=== PATIENT | female | born 1960 | race Caucasian/White ===

== ENCOUNTER → 2016-07-30 | Outpatient (CLI) | payer OTHER | LOC: FIMAGING 17:44 | PROVIDERS: ATTEND Neurological Surgery | DX: M54.6 Pain in thoracic spine (principal); M54.5 Low back pain; Z98.1 Arthrodesis status; T84.498A Other mechanical complication of other internal orthopedic devices, implants and grafts, initial encounter; M51.34 Other intervertebral disc degeneration, thoracic region ==

== ENCOUNTER → 2016-08-13 | Outpatient (CLI) | payer OTHER | LOC: FIMAGING 15:28 | PROVIDERS: ATTEND Neurological Surgery | DX: M47.22 Other spondylosis with radiculopathy, cervical region (principal); Z98.1 Arthrodesis status ==

== ENCOUNTER → 2016-08-30 | Outpatient (CLI) | payer OTHER | LOC: FIMAGING 12:13 | PROVIDERS: ATTEND Neurological Surgery | DX: M54.12 Radiculopathy, cervical region (principal); Z98.1 Arthrodesis status ==

== ENCOUNTER → 2016-09-08 | Outpatient (CLI) | payer OTHER | LOC: CIMAGING 09:21 | PROVIDERS: ATTEND Neurological Surgery | DX: M48.04 Spinal stenosis, thoracic region (principal); M51.34 Other intervertebral disc degeneration, thoracic region; M25.78 Osteophyte, vertebrae; Z98.1 Arthrodesis status | CPT/HCPCS: 72131-PO ==

== ENCOUNTER → 2016-10-15 | Outpatient (CLI) | payer OTHER | LOC: BHCLAF 13:30 | PROVIDERS: ATTEND Internal Medicine Cardiovascular Disease | DX: Z01.818 Encounter for other preprocedural examination (principal); I38 Endocarditis, valve unspecified | CPT/HCPCS: 93005-PO ==

== ENCOUNTER 2016-10-29 11:22 | Inpatient (IN) | payer OTHER ==
--- NOTE | 2016-10-29 07:32 | PDHPUP ---
History & Physical Update H&P update statement: This history and physical update is based on an assessment of the patient which was completed after admission or registration (within 24 hours), but prior to the surgery/procedure. H&P update: H&P reviewed & patient examined, no change in patient's condition since H&P completed
[~2016-10-29 11:22] MED LIST: AVITENE POWDER 1 GM JAR TP ONE; BACITRACIN 50,000 UNITS/10 ML SYR IRR ONE; BUPIVACAINE/EPI 0.25% 30 ML SDV ONE; CHLORHEXIDINE GLUC HIBICLENS 118 ML BTL TP ONE; THROMBIN (BOVINE) 5,000 UNIT VIAL TP ONE; VANCOMYCIN 1 GM VIAL ONE; ceFAZolin 2 GM/DEXTROSE 100 ML IV ONE
[2016-10-29] MEDS ORDERED: LIDOCAINE 1% 2 ML INJ ID PRN (11:57)
[2016-10-29] MEDS ORDERED: LR 1,000 ML IV ONE (11:57)
[2016-10-29] MEDS ORDERED: ceFAZolin 2 GM/DEXTROSE 100 ML IV ONE (12:00)
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
[2016-10-29] MEDS ORDERED: CYCLOBENZAPRINE 10 MG TAB PO PRN (12:37)
[2016-10-29] MEDS ORDERED: DIAZEPAM 10 MG TAB PO PRN (12:37)
[2016-10-29] MEDS ORDERED: NALOXONE HCL 0.4 MG/ML INJ IVP PRN ×2 (12:40→19:11)
[2016-10-29] MEDS ORDERED: NS 500 ML IV PRN (12:40)
[2016-10-29] MEDS ORDERED: BISACODYL 10 MG SUPP PR PRN (12:40)
[2016-10-29] MEDS ORDERED: oxyCODONE IR 5 MG TAB PO PRN (12:40)
[2016-10-29] MEDS ORDERED: diphenhydrAMINE 25 MG CAP PO PRN (12:40)
[2016-10-29] MEDS ORDERED: ONDANSETRON DISINTEGRATING 4 MG TAB PO PRN (12:40)
[2016-10-29] MEDS ORDERED: ONDANSETRON 4 MG/2 ML VIAL IVP PRN (12:40)
[2016-10-29] MEDS ORDERED: MAGNESIUM HYDROXIDE 30 ML UDCUP PO PRN (12:40)
[2016-10-29] MEDS ORDERED: POLYETHYLENE GLYCOL 3350 17 GM PKT PO PRN (12:40)
[2016-10-29] MEDS ORDERED: LACTULOSE 20 GM/30 ML UDCUP PO PRN (12:40)
[2016-10-29] MEDS ORDERED: DEXMEDETOMIDINE HCL 400 MCG in NS 100 ML IV SCH (13:00)
[2016-10-29] MEDS ORDERED: PROPOFOL 200 MG/20 ML VIAL ONE ×2 (13:03→14:16)
[2016-10-29] MEDS ORDERED: MIDAZOLAM 2 MG/2 ML VIAL IVP ONE (13:06)
[2016-10-29] MEDS ORDERED: DEXMEDETOMIDINE HCL 200 MCG/2 ML VIAL IV ONE (13:08)
[2016-10-29] MEDS ORDERED: fentaNYL 100 MCG/2 ML INJ ONE ×2 (13:09)
[2016-10-29] MEDS ORDERED: MIDAZOLAM 2 MG/2 ML VIAL ONE (13:13)
[2016-10-29] MEDS ORDERED: ALBUMIN 5% 250 ML BOTTLE IV ONE (13:16)
[2016-10-29] MEDS ORDERED: PHARMACY PAIN CONSULT 1 EA MISC SCH (13:45)
[2016-10-29] MEDS ORDERED: PROPOFOL/EMULSION 500 MG/50 ML BOTTLE IV ONE (15:02)
[2016-10-29] MEDS ORDERED: HYDROmorphONE/DILAUDID 2 MG/ML INJ ONE (17:32)
[2016-10-29] MEDS ORDERED: PHENYLEPHRINE HCL 100 MCG/ML SYR ONE (17:58)
[2016-10-29] MEDS ORDERED: LIDOCAINE 2% 5 ML SDV ONE (17:58)
[2016-10-29] MEDS ORDERED: ONDANSETRON 4 MG/2 ML VIAL ONE (17:58)
[2016-10-29] MEDS ORDERED: DEXAMETHASONE 4 MG/ML VIAL ONE (17:58)
[2016-10-29] MEDS ORDERED: ROCURONIUM 50 MG/5 ML VIAL ONE (17:58)
[2016-10-29] MEDS ORDERED: epHEDrine SULFATE 10 MG/ML SYR ONE (18:23)
--- NOTE | 2016-10-29 18:27 | POSTOPPROG ---
Post Op Note Date of Operation: 10/29/16 Surgeon: Callie Carey Wire Stitcher Operator: Gerber ZIMMER Anesthesia: GET(General Endotracheal) Procedure: T8-T12 fusion with S2 tie in, T10-11 laminectomy Inf/Abcess present in the surg proc area at time of surgery?: No Depth: Deep Incisional (Fascial) EBL: 100-500 Total fluids administered: see anesthesia Complications: none Drains: Reuben Verdin Date of Surgery: 10/29/16 Post Op Day: 0 Assessment/Plan: 55 yr old with multiple medical problems, s/p T8-T12 with S2 tie in fusion and T10-11 laminectomy Plan: -Pain management, MELTER SUPERVISOR OPEN HEARTH FURNACE ordered, Precedex if needed -PT/OT -Wear brace when out of bed-Dip Painter to fit with clamshell brace -Post op xrays in am -SCOTT in place-productive -Call neurosurgery with any questions/concerns Subjective: Patient waking up in PACU Objective: PERRLA 5/5 BUE 5/5 BLE Sensation intact to light touch BLE SCOTT in place Dressing CDI Appropriate Neuro Check Frequency Ordered: Yes
[2016-10-29] MEDS: ACETAMINOPHEN 500 MG TAB PO SCH ×2 (18:51→21:59)
[2016-10-29] MEDS: HYDROmorphONE/DILAUDID 1 MG/ML SYR IVP PRN ×3 (19:10→19:30)
[2016-10-29] MEDS ORDERED: LR 500 ML IV PRN (19:11)
[2016-10-29] MEDS ORDERED: PROMETHAZINE HCL 25 MG/ML INJ IVP PRN (19:11)
[2016-10-29] MEDS ORDERED: OXYCODONE/APAP 5/325 TAB PO PRN (19:11)
[2016-10-29] MEDS ORDERED: HYDROmorphONE/DILAUDID 1 MG/ML SYR ONE (19:22)
[2016-10-29] MEDS: HYDROmorphONE/DILAUDID 6 MG/30 ML PCA IV PRN (20:22)
[2016-10-29] MEDS: NS 1,000 ML IV SCH (20:22)
[2016-10-29] MEDS: oxyCODONE IR 15 MG TAB PO PRN (20:50)
[2016-10-29] MEDS: SENNOSIDES/DOCUSATE SODIUM TAB PO SCH (20:51)
[2016-10-29] MEDS: METHOCARBAMOL 750 MG TAB PO SCH (20:51)
[2016-10-29] MEDS: FAMOTIDINE 20 MG TAB PO SCH (20:51)
[2016-10-29] MEDS: HYDROmorphONE/DILAUDID 4 MG TAB PO PRN (20:51)
[2016-10-29] MEDS: ceFAZolin 2 GM/DEXTROSE 100 ML IV SCH (21:57)
[2016-10-29] MEDS: LOPREEZA PO SCH (21:58)
[2016-10-29] MEDS: GABAPENTIN 300 MG CAP PO SCH (21:59)
[2016-10-29] MEDS: Oxymorphone Hcl [Opana Er] 40 MG PO SCH (22:05)
[2016-10-29] MEDS: metFORMIN HCL 500 MG TAB PO SCH (22:18)
[2016-10-29] MEDS: QUEtiapine FUMARATE 50 MG TAB PO SCH (22:53)
[2016-10-29] MEDS: DIAZEPAM 10 MG TAB PO SCH (22:53)
[2016-10-29] MEDS: traZODone 100 MG TAB PO SCH (22:53)
[2016-10-29] MEDS: Suvorexant [Belsomra] 10 MG PO SCH (23:34)
--- NOTE | 2016-10-29 23:57 | GCON ---
[f rep st] CONSULTATION HOSPITALIST CONSULTATION DATE OF CONSULTATION: 10/29/2016 REFERRING PHYSICIAN: Tevin Esparza MD REASON FOR CONSULTATION: Postoperative medical management. HISTORY OF PRESENT ILLNESS: This is a 55-year-old female with history of multiple back surgeries, w ho underwent a T10/11 thoracic laminectomy, T8-L2 fusion, and thoracic hardware removal at T12 and L 1, whom we were asked to consult for medical management. The patient has a history of multiple medical problems, including but not limited to, adrenal insuff iciency, anxiety, chronic pain, colitis, Marfan syndrome with mitral valve disease, narcolepsy. Postoperatively,the patient has been transferred to the intensive care unit where currently she is r esting comfortably. She tells me her pain is controlled. It is better when she lays on her left si de. She denies any chest pain or shortness of breath. She denies any fevers or chills. PAST MEDICAL HISTORY: 1. Marfan syndrome. 2. Mitral valve replacement by Dr. Carlson in 2013. 3. Microvascular colitis. 4. Adrenal insufficiency. 5. Anxiety. 6. Chronic back pain. 7. Insomnia. 8. Narcolepsy. PAST SURGICAL HISTORY: 1. Multiple back surgeries. 2. Bilateral tubal ligation. 3. Hemorrhoidectomy. 4. Left radial fracture. 5. ORIF. MEDICATIONS: Reviewed. ALLERGIES: Fentanyl, codeine, prednisone, hydrocortisone. SOCIAL HISTORY: She is a former smoker. There is no history of illicit drug use. FAMILY HISTORY: Reviewed and noncontributory. REVIEW OF SYSTEMS: Comprehensive 10-point review of systems was done and is negative, except for as mentioned in the HPI. PHYSICAL EXAMINATION: VITAL SIGNS: Blood pressure 95/55, pulse of 81, respiratory rate 12, O2 satu ration 98% on room air. Temperature afebrile. GENERAL: No acute distress. HEAD: Normocephalic, atraumatic. EYES: PERRLA. Sclerae anicteric. MOUTH: Moist mucous membranes. NECK: Supple. No lymphadenopathy. CARDIOVASCULAR: S1, S2. Systolic murmur. There is no JVD. There is no lower e xtremity edema. PULMONARY: Diminished breath sounds bilaterally. BACK: Clean dry dressing in brock ce. ABDOMEN: Soft, nontender, nondistended. No guarding or rebound tenderness. Normoactive bowel sounds. EXTREMITIES: No clubbing or cyanosis. NEURO: Cranial nerves 2-12 grossly intact. She m oves her lower extremities with no focal deficits. SKIN: Clear. No rashes. DIAGNOSTICS: Laboratory studies from 10/16/2016. WBC is 9.5, hemoglobin 13.1, hematocrit 40.2, brock telets 301. Sodium 139, potassium 4.4, chloride 99, BUN 8, creatinine 0.7, glucose 97. Glucose sin ce her surgery has ranged from 84-206. ASSESSMENT AND PLAN: This is a 55-year-old female with history of multiple medical problems, who un derwent a T10/11 thoracic laminectomy, T8/T12 thoracic posterior fusion, and thoracic hardware remov al today by Dr. Nelson Esparza, who I have been asked to see for medical management. 1. History of Marfan syndrome with valvular heart disease: Plan: Currently, the patient appears t o be oxygenating well without signs of acute heart failure. She will be closely monitored while her e in the hospital. 2. Reported history of adrenal insufficiency: The patient is mildly hypotensive at this time but a ppears to be asymptomatic. Will continue to monitor her blood pressure, as well as order electrolyt es in the morning in view of stress-dose steroids as indicated. To note, it does appear that she platt s allergies to prednisone and hydrocortisone listed. 3. History of microvascular colitis: Plan: Will continue to monitor. Thank you for allowing me to participate in the care of the patient. The hospitalist service will c reg to follow along with you. /[id number]/MODL
[2016-10-30 02:17] LABS: % IMMATURE GRANULYOCYTES 0.5 % (0.0-1.1); ABSOLUTE IMMATURE GRANULOCYTES 0.04 10^3/uL (0.00-0.10); ADD DIFF? NO; ADD MORPH? NO; ADD SCAN? NO; ATYPICAL LYMPHOCYTE FLAG 0 (0-99); FRAGMENT RBC FLAG 0 (0-99); HEMATOCRIT 23.1 % (38.0-47.0); HEMOGLOBIN 7.7 g/dL (12.6-16.3); LEFT SHIFT FLG 0 (0-99); LIPEMIA HEMOLYSIS FLAG 80 (0-99); MEAN CELL HEMOGLOBIN 28.5 pg (27.9-34.1); MEAN CELL HEMOGLOBIN CONCENTR. 33.3 g/dL (32.4-36.7); MEAN CELL VOLUME 85.6 fL (81.5-99.8); MEAN PLATELET VOLUME 8.8 fL (8.7-11.7); PLATELET CLUMPS FLAG 0 (0-99); PLATELET COUNT 161 10^3/uL (150-400); RED CELL DISTRIBUTION WIDTH 13.5 % (11.5-15.2)
[2016-10-30 02:32] LABS: ANION GAP 4 mEq/L (8-16); CALCIUM 7.4 mg/dL (8.5-10.4); CARBON DIOXIDE 24 mEq/l (22-31); CHLORIDE 102 mEq/L (97-110); CREATININE 0.6 mg/dL (0.6-1.0); GLOMERULAR FILTRATION RATE > 60; GLUCOSE 104 mg/dL (70-100); POTASSIUM 4.1 mEq/L (3.5-5.2); SODIUM 130 mEq/L (134-144)
--- NOTE | 2016-10-30 03:48 | GOP ---
[f rep st] OPERATIVE REPORT DATE OF OPERATION: 10/29/2016 SURGEON: Tevin Esparza MD ASSIGNMENT MANAGER: Gerber Madison PA-C. PREOPERATIVE DIAGNOSIS: Prior T12-S1 fusion with known fractured S1 screws although she, by CT crit eria, has solid bony union from T12 to S1. She developed, adjacent segment disease, thoracic spine, severe thoracic degenerative disk disease. Thoracic spinal stenosis. Thoracic back pain. POSTOPERATIVE DIAGNOSIS: Prior T12-S1 fusion with known fractured S1 screws although she, by CT cri teria, has solid bony union from T12 to S1. She developed, adjacent segment disease, thoracic spine , severe thoracic degenerative disk disease. Thoracic spinal stenosis. Thoracic back pain. PROCEDURE PERFORMED: Removal of posterior segmental hardware at T12-L1 with removal of connectors a t L3, posterior segmental instrumentation T8-T9, T10-T11, T12-L1 ([id number], posterior-lateral arthrodes is T8-9, 9-10, 10-11, T12-L1, L1-L2), spinal stereotactic, thoracic laminectomy without facetectomy T10-11. Same incision bone graft harvest. FINDINGS: ESTIMATED BLOOD LOSS: 500 cc. INDICATIONS: The patient is a 55-year-old with Marfan's syndrome, has a history of multilevel anter ior and posterior cervical ACDF as well as a long history of problems in her lower back. She, in fa ct, had a history of pseudoarthrosis requiring revision surgery from a prior surgery that she had platt d done before coming to us, but she had gone on to progress to a solid bony union with her subsequen t surgeries and clinically she did well. She presented to us several months ago with increasing tho racic back pain radiating into the in-line across the top of her construct. She did have numerous a ches and pains throughout various parts of her body but her greatest pain was just above her lumbosa cral fusion and imaging demonstrates severe adjacent segment of breakdown with facet arthropathy, sp inal stenosis and degenerative disk disease, and mild kyphosis above her prior effusion. We tried t o manage this conservatively. It is our hope that she could avoid surgery but she just had incapaci tating pain. The distribution of her pain was consistent with MR imaging and the degenerative thomas es on her MR and for these reasons surgery was offered to the patient we explained to her the nature of the surgery including the nature extending the fusion into the thoracic spine as well as the lik elihood that she would breakdown above our construct at T7-8 and almost certainly, given the constru ct, over time would grow and the in fact grow to join the cervical construct that she had as well. She understood this and she was very unhappy with her quality of life and was anxious to proceed wit h surgery. She saw no other path forward despite our warnings about the implications of the surgery , risk of screw and hardware failure, malposition, malfunction, nerve injury, spinal fluid leak, con tinued symptoms, Pseudarthrosis and further adjacent segment disease, as well as a slight risk of sp inal cord injury was discussed. She accepted these risks and she wanted to proceed. DESCRIPTION OF PROCEDURE: The patient was taken to the operating room, placed in the supine positio n. General anesthesia was begun. An arterial line was placed. She was carefully put on the Jackso n table. Care was taken to pad all points of contact. Her back was sterilely prepped and draped in the usual fashion. The O-arm was introduced sterilely in the field. A localizing x-ray was taken. We planned an incision from about the spinous process of T7 down to the spinous process of L3. We used the plasma blade for our dissection and performed a subperiosteal dissection down the inferior lamina of T7, the lamina of T8, T9, T10, T11, T12, L1, L2 and L3 was exposed. The prior surgical s ite was exposed. The prior hardware at T12-L1 was exposed. We began by removing the cap screws and the rods associated with that hardware. We then removed both of the 4.75 mm pedicle screws at T12 and then both of them at L1. We marked their size. They were not loose. We then removed all the s oft tissue underneath the screws. We removed the rods from the connectors down at L3. These connec tors were in good mechanical shape then we elected to leave the connectors themselves in place. We then performed an O-arm spin, and using frameless stealth stereotaxis, we placed pedicle screws bila terally at L1 and T12, T11, T10, T9 and T8. The pedicles at the lower thoracic areas T9, 10 11 and 12 were all reasonable. The T8 pedicles were solid cortical bone and measured about 4.5 mm across. We hand drilled with the match stick drill bit through the T8 pedicle on the left. We were happy w ith this. On the right-hand side we also hand drilled to the right T8 pedicle. It was slightly mor e narrow than the pedicle on the left. I was not extremely happy with this trajectory and we did no t actually put a screw on the right at T8. We performed an O-arm spin with a radiopaque marker in i t and all the screws were in acceptable position except the radiopaque marker on the right at T8 was slightly medial. I did not want to put a stitchdown toe former that trajectory, would breach the medial pedic le border. We then elected for an in-out-in approach with that screw and began our navy fighter pilot hole sligh tly lateral to the pedicle, went into the transverse process and then crossed just lateral to the pe dicle in the costovertebral region and then reentered the vertebral body and we placed a screw in th is trajectory. This screw head was now located somewhat laterally and because of this, we elected t o remove the T9 and T10 screws on the right-hand side slightly more lateral with a similar approach and these were both removed. An O-arm spin was made and all the hardware was in excellent position. Motor evoked potential was done and it was stable and there was no difficulty. The SSEPs were als o stable. We decorticated the transverse processes in the facet joints bilaterally prior to placeme nt of the rods to create arthrodesis. We chose a 5.5 mm titanium alber and shaped it to fit into the tulips. We placed in the connector on each side and then subsequently placed cap screws down over t he tulips. We distracted slightly at each of the thoracic levels by just a few mm to indirectly ope n the neural foramen on each side. We then harvested the T10 and T11, T12 and L1 spinous processes for autologous grafting purposes. We fully decorticated all the remaining bone. We then drilled an d harvested the T10 lamina. We then opened the ligamentum flavum and using Kerrison punches we deco mpressed the thecal sac and a nice decompression was performed at T10-11. There were bilateral hype rtrophic facets and we did perform a minimal facetectomy to decompress the lateral recesses of the s joaquin canal and neural foramen. We did not perform formal bilateral foraminotomies. We ensured zoya t all the tulips and cap screws were torqued to company specification, placed bony autograft and BMP posterolaterally bilaterally from T8 all the way down onto L2. We then placed a subfascial drain a nd then closed the incision in multiple layers using Vicryl sutures. This concluded the procedure. SECONDARY ASSIGNMENT MANAGER: Callie Carey NP COMPLICATIONS: None. INSTRUMENTATION REMOVED: Medtronic Solara 4.75 mm system at T12-L1. INSTRUMENTATION IMPLANTED: Medtronic Solara 5.5 mm system with titanium rods. We used 2.0 mg of melissa ne morphogenic protein. No bony allograft was used. The patient's own bone autograft harvested at the same site. /[id number]/MODL
[2016-10-30] MEDS: ACETAMINOPHEN 500 MG TAB PO SCH ×4 (05:23→23:02)
[2016-10-30] MEDS: ceFAZolin 2 GM/DEXTROSE 100 ML IV SCH (05:23)
[2016-10-30] MEDS: BUDESONIDE 3 MG EC CAP PO SCH (07:55)
[2016-10-30] MEDS: METHOCARBAMOL 750 MG TAB PO SCH ×2 (07:56→17:48)
[2016-10-30] MEDS: metFORMIN HCL 500 MG TAB PO SCH ×3 (07:56→17:48)
[2016-10-30] MEDS: LEVOTHYROXINE 88 MCG TAB PO SCH (07:56)
[2016-10-30] MEDS: FAMOTIDINE 20 MG TAB PO SCH ×2 (07:57→20:58)
[2016-10-30] MEDS: SENNOSIDES/DOCUSATE SODIUM TAB PO SCH ×3 (07:57→23:03)
--- NOTE | 2016-10-30 08:03 | NEUSURGPN ---
Date of Surgery: 10/29/16 Post Op Day: 1 Assessment/Plan: Assessment: 55 yr old with multiple medical problems, s/p T8-T12 with S2 tie in fusion and T10-11 laminectomy POD #1 Plan: -pt with expected lower back/T spine pain -CDI -PT/OT pending -pt to measured for brace today -dixon in until more mobile and when brace arrives -Pt required unit of blood-repeat labs pending this am -Pain management, SURGICAL FIRST ASSISTANT ordered, Precedex if needed-still working on resolution of this samir -Wear brace when out of bed-Retail Clerk to fit with clamshell brace -no bending or twisting -IM on board for comanagement-appreciate input -Post op xrays once brace arrives -SCOTT in [id number] in place until tomorrow -Call neurosurgery with any questions/concerns -pt seen by Dr Esparza as well Subjective: Awake and alert, NAD. Eating/drinking. No f/c/n/v/d. No platt/neck/chest/abd or gu complaints Objective: Awake and alert, PERRLA 5/5 BUE 5/5 BLE Sensation intact to light touch BLE SCOTT in place Dressing CDI Neuro Check Frequency: per routine Urinary Catheter in Place: Yes Urinary Catheter Indication: Surgical Requirement (not mobile) Catheter Insertion Date: 10/29/16 - Physician Discussed Patient with : Isaias Patient Seen by : Isaias Neurosurgery Physical Exam - Vitals, I&O, Labs I and O 10/29/16 10/30/16 10/31/16 05:59 05:59 05:59 Intake Total 3797.8 Output Total 1225 Balance 2572.8 Weight 61.689 kg Intake: Oral (ml) 1500 IV Intake (ml) 1100 IV Infused (ml) 747.8 HYDROmorphone HCL See 2.8 Protocol IV PRN PRN Rx#: [id number] Ns 1,000 ml @ 75 mls/hr 745 IV CONT TU Rx#: [id number] Packed Red Blood Cells ( 450 ml) Output: Urine (ml) 925 Catheter 925 SCOTT Drain Output (ml) 300 #1 Left Back Reuben 300 Verdin Vital Signs Temp Pulse Resp BP Pulse Ox 36.5 C 68 10 L 98/63 L 100 10/30/16 04:00 10/30/16 06:00 10/30/16 06:00 10/30/16 06:00 10/30/16 06:00 Laboratory Results 10/30/16 02:00 10/30/16 02:00 ICD10 Worksheet Patient Problems: Problems Problem Status Onset H/O spinal fusion Acute Lumbago Acute Lumbar stenosis Acute Mitral valve regurgitation Acute
[2016-10-30] MEDS: Oxymorphone Hcl [Opana Er] 40 MG PO SCH ×2 (08:04→17:48)
[2016-10-30 09:03] LABS: HEMATOCRIT 25.6 % (38.0-47.0); HEMOGLOBIN 8.7 g/dL (12.6-16.3); MEAN CELL HEMOGLOBIN 29.3 pg (27.9-34.1); MEAN CELL VOLUME 86.2 fL (81.5-99.8); RED BLOOD CELL COUNT 2.97 10^6/uL (4.18-5.33); RED CELL DISTRIBUTION WIDTH 13.8 % (11.5-15.2)
[2016-10-30 09:34] LABS: ALANINE AMINOTRANSFERASE 19 IU/L (9-52); ALBUMIN 2.3 g/dL (3.5-5.0); ALKALINE PHOSPHATASE 32 IU/L (38-126); ANION GAP 7 mEq/L (8-16); ASPARTATE AMINOTRANSFERASE 20 IU/L (14-46); BILIRUBIN,TOTAL 0.7 mg/dL (0.1-1.4); CALCIUM 7.2 mg/dL (8.5-10.4); CARBON DIOXIDE 21 mEq/l (22-31); CHLORIDE 97 mEq/L (97-110); CREATININE 0.6 mg/dL (0.6-1.0); GLOMERULAR FILTRATION RATE > 60; GLUCOSE 79 mg/dL (70-100); SODIUM 125 mEq/L (134-144); TOTAL PROTEIN 4.2 g/dL (6.3-8.2)
--- NOTE | 2016-10-30 13:12 | HOSPPROG ---
Hospitalist Progress Note Assessment/Plan: DIAGNOSES: -status post spine surgery with bone grafting and removal of hardware -pain management in patient with longstanding chronic pain syndrome -brief hypotension today responded to some saline -hyponatremia, multifactorial but mainly large part be due to significant IV and oral fluid intake; I do not think this is adrenal insufficient state but will watch carefully how she responds -history microscopic colitis on chronic low-dose budesonide; some history of adrenal insufficiency problems related to this but has never had adrenal insufficiency issues and postop settings; her current home dose of steroids could 9 mg of budesonide 0 care for last -Marfan syndrome; mitral valve replacement history reviewed in detail with Dr Thornton seen on multidisc rounds PLANS: -oral fluid restriction and follow Na closely -if further problems with Na and BP may need to consdier hypertonic saline or more steroid but would hope to avoid steroid due to her bone graft -continue current steroid -continue current pain meds, may need increase if pain gets any worse SUBJECTIVE: Quite a bit of pain but otherwise feels well No nausea or vomiting; is eating, no shortness of breath or chest pain OBJECTIVE Vitals reviewed: Some mildly low blood pressures but otherwise normal without fever Outfitter Cabin, my review: Sinus rhythm Exam: alert oriented reasonably relaxed skin warm dry color ok resps not labored lungs clear BSs heart regular abd soft nondistended nontender, bowel sounds present limbs warm, no edema iv site ok Objective: Vital Signs Temp Pulse Resp BP Pulse Ox 36.8 C 80 19 94/64 L 100 10/30/16 08:00 10/30/16 10:00 10/30/16 10:00 10/30/16 10:00 10/30/16 10:00 Laboratory Results 10/30/16 08:50 10/30/16 08:50 10/29/16 10/30/16 10/31/16 06:59 06:59 06:59 Intake Total 3797.8 Output Total 1225 200 Balance 2572.8 -200 - Time Spent With Patient Time Spent with Patient: greater than 35 minutes Time Spent with Patient: Greater than 35 minutes spent on this patients care, greater than 50% of time spent counseling, educating, and coordinating care regarding the above mentioned plan. ICD10 Worksheet Patient Problems: Problems Problem Status Onset H/O spinal fusion Acute Lumbago Acute Lumbar stenosis Acute Mitral valve regurgitation Acute
[2016-10-30] MEDS: HYDROmorphONE/DILAUDID 6 MG/30 ML PCA IV PRN (14:17)
--- NOTE | 2016-10-30 14:26 | PDINTPN ---
Senior Financial Progress Note Assessment/Plan: Assessment: Hypoglycemia: Due to accidental Levemir overdose. Now BSs improved off dextrose and taking PO only. Plan: Decrease frequency of BS checks. Restart insulin and probably can discharge home. 10/30/16 14:23 Subjective: Feels better, eating well, no N/V, confusion. Objective: Vital Signs Temp Pulse Resp BP Pulse Ox 36.8 C 80 19 94/64 L 100 10/30/16 08:00 10/30/16 10:00 10/30/16 10:00 10/30/16 10:00 10/30/16 10:00 Laboratory Results 10/30/16 08:50 10/30/16 08:50 10/29/16 10/30/16 10/31/16 05:59 05:59 05:59 Intake Total 3797.8 Output Total 1225 200 Balance 2572.8 -200 Physical Exam - Physical Exam General Appearance: alert, no apparent distress EENT: normal ENT inspection Neck: normal inspection Respiratory: lungs clear, normal breath sounds Cardiac/Chest: regular rate, rhythm, No edema Abdomen: normal bowel sounds, non-tender, soft Skin: normal color, warm/dry Extremities: normal inspection Neuro/Psych: no motor/sensory deficits, alert, normal mood/affect ICD10 Worksheet Patient Problems: Problems Problem Status Onset H/O spinal fusion Acute Lumbago Acute Lumbar stenosis Acute Mitral valve regurgitation Acute
[2016-10-30] MEDS: LOPREEZA PO SCH (17:48)
[2016-10-30] MEDS: oxyCODONE IR 15 MG TAB PO PRN (19:07)
[2016-10-30] MEDS: HYDROmorphONE/DILAUDID 4 MG TAB PO PRN (19:08)
[2016-10-30] MEDS: GABAPENTIN 300 MG CAP PO SCH (20:58)
[2016-10-30] MEDS: traZODone 100 MG TAB PO SCH (22:54)
[2016-10-30] MEDS: DIAZEPAM 10 MG TAB PO SCH (22:54)
[2016-10-30] MEDS: QUEtiapine FUMARATE 50 MG TAB PO SCH (22:54)
[2016-10-30] MEDS: Suvorexant [Belsomra] 10 MG PO SCH (23:04)
[2016-10-31] MEDS: ACETAMINOPHEN 500 MG TAB PO SCH ×3 (06:44→20:52)
[2016-10-31] MEDS: METHOCARBAMOL 750 MG TAB PO SCH ×2 (08:10→17:13)
[2016-10-31] MEDS: metFORMIN HCL 500 MG TAB PO SCH ×2 (08:10→17:13)
[2016-10-31] MEDS: BUDESONIDE 3 MG EC CAP PO SCH (08:10)
[2016-10-31] MEDS: LEVOTHYROXINE 88 MCG TAB PO SCH (08:10)
[2016-10-31] MEDS: Oxymorphone Hcl [Opana Er] 40 MG PO SCH ×2 (08:24→17:27)
[2016-10-31] MEDS: HYDROmorphONE/DILAUDID 4 MG TAB PO PRN ×2 (10:18→16:51)
[2016-10-31] MEDS: FAMOTIDINE 20 MG TAB PO SCH ×2 (10:19→20:52)
[2016-10-31] MEDS: SENNOSIDES/DOCUSATE SODIUM TAB PO SCH ×2 (10:19→20:52)
[2016-10-31] MEDS ORDERED: oxyCODONE IR 15 MG TAB PO PRN (10:20)
--- NOTE | 2016-10-31 10:29 | NEUSURGPN ---
Assessment/Plan: 55 yr old with multiple medical problems, s/p T8-T12 with S2 tie in fusion and T10-11 laminectomy POD #2 Plan: -pt with expected lower back/T spine pain -CDI -PT/OT pending -Brace to be delivered today -dixon in until more mobile and when brace arrives -Pain management, MESS ATTENDANT ordered, Precedex if needed. Increased Oxycodone this morning -Wear brace when out of bed-Director Of Patient Care to fit with clamshell brace -no bending or twisting -IM on board for comanagement-appreciate input -Post op xrays once brace arrives -SCOTT in fhqll-fmtvesqyun-nxfin in place until tomorrow -Call neurosurgery with any questions/concerns -pt seen by Dr Esparza as well Subjective: Back/ incisional site pain. 5/5 and equal in BUE and BLE Objective: Dressing c/d/i. SCOTT drain serosanginous. 5/5 and equal in BUE and BLE. Catheter Insertion Date: 10/29/16 - Physician Discussed Patient with : Isaias Neurosurgery Physical Exam - Vitals, I&O, Labs I and O 10/30/16 10/31/16 11/01/16 05:59 05:59 05:59 Intake Total 3797.8 1864 Output Total 1225 7450 Balance 2572.8 -5586 Weight 61.689 kg Intake: Oral (ml) 1500 1150 IV Intake (ml) 1100 423 IV Infused (ml) 747.8 291 HYDROmorphone HCL See 2.8 2 Protocol IV PRN PRN Rx#: [id number] Ns 1,000 ml @ 75 mls/hr 745 289 IV CONT TU Rx#: [id number] Packed Red Blood Cells ( 450 ml) Output: Urine (ml) 925 6950 Catheter 925 6950 SCOTT Drain Output (ml) 300 500 #1 Left Back Reuben 300 500 Verdin Vital Signs Temp Pulse Resp BP Pulse Ox 36.8 C 97 15 98/66 L 98 10/30/16 12:00 10/31/16 06:00 10/31/16 06:00 10/31/16 06:00 10/31/16 06:00 Laboratory Results 10/30/16 08:50 10/30/16 08:50 ICD10 Worksheet Patient Problems: Problems Problem Status Onset H/O spinal fusion Acute Lumbago Acute Lumbar stenosis Acute Mitral valve regurgitation Acute
--- NOTE | 2016-10-31 10:44 | HOSPPROG ---
Hospitalist Progress Note Assessment/Plan: DIAGNOSES: -status post spine surgery with bone grafting and removal of hardware -pain management in patient with longstanding chronic pain syndrome -brief hypotension today responded to some saline (her baseline BPs are actually quite low when healthy) no sign of sepsis or hemorrhage -hyponatremia, multifactorial but mainly large part be due to significant IV and oral fluid intake; -has resolved by auto diuresis without diuretic med -history microscopic colitis on chronic low-dose budesonide; some history of adrenal insufficiency problems related to this but no sign of insufficiency now -Marfan syndrome; mitral valve replacement history reviewed in detail with Dr Thornton seen on multidisc rounds PLANS: -oral fluid restriction and follow Na closely -continue current steroid -continue current pain meds, may need increase if pain gets any worse -PT OT SUBJECTIVE: less pain today no other new acute symptoms OBJECTIVE Vitals reviewed: Some mildly low blood pressures are actually at her chronic baseline Echocardiologist, my review: Sinus rhythm Exam: alert oriented reasonably relaxed skin warm dry color ok resps not labored lungs clear BSs heart regular abd soft nondistended nontender, bowel sounds present limbs warm, no edema iv site ok Objective: Vital Signs Temp Pulse Resp BP Pulse Ox 36.8 C 97 15 98/66 L 98 10/30/16 12:00 10/31/16 06:00 10/31/16 06:00 10/31/16 06:00 10/31/16 06:00 Laboratory Results 10/30/16 08:50 10/30/16 08:50 10/30/16 10/31/16 11/01/16 06:59 06:59 06:59 Intake Total 3797.8 1864 Output Total 1225 7495 Balance 2572.8 -5542 ICD10 Worksheet Patient Problems: Problems Problem Status Onset H/O spinal fusion Acute Lumbago Acute Lumbar stenosis Acute Mitral valve regurgitation Acute
[2016-10-31 15:56] LABS: ANION GAP 5 mEq/L (8-16); CALCIUM 7.5 mg/dL (8.5-10.4); CARBON DIOXIDE 25 mEq/l (22-31); CHLORIDE 104 mEq/L (97-110); CREATININE 0.6 mg/dL (0.6-1.0); GLOMERULAR FILTRATION RATE > 60; GLUCOSE 85 mg/dL (70-100); POTASSIUM 3.4 mEq/L (3.5-5.2); SODIUM 134 mEq/L (134-144)
[2016-10-31] MEDS: oxyCODONE IR 5 MG TAB PO PRN (16:51)
[2016-10-31] MEDS: LOPREEZA PO SCH (17:14)
[2016-10-31] MEDS: GABAPENTIN 300 MG CAP PO SCH (20:52)
[2016-10-31] MEDS: DIAZEPAM 10 MG TAB PO SCH (22:40)
[2016-10-31] MEDS: traZODone 100 MG TAB PO SCH (22:40)
[2016-10-31] MEDS: QUEtiapine FUMARATE 50 MG TAB PO SCH (22:40)
[2016-10-31] MEDS: Suvorexant [Belsomra] 10 MG PO SCH (22:56)
[2016-11-01 05:39] LABS: ANION GAP 4 mEq/L (8-16); CALCIUM 8.2 mg/dL (8.5-10.4); CARBON DIOXIDE 29 mEq/l (22-31); CHLORIDE 101 mEq/L (97-110); CREATININE 0.6 mg/dL (0.6-1.0); GLOMERULAR FILTRATION RATE > 60; GLUCOSE 86 mg/dL (70-100); POTASSIUM 3.8 mEq/L (3.5-5.2); SODIUM 134 mEq/L (134-144)
[2016-11-01] MEDS: ACETAMINOPHEN 500 MG TAB PO SCH ×3 (06:14→21:50)
--- NOTE | 2016-11-01 06:59 | NEUSURGPN ---
Date of Surgery: 10/29/16 Post Op Day: 3 Assessment/Plan: Assessment: 55 yr old female with multiple medical problems, s/p T8-T12 with S2 tie in fusion and T10-11 laminectomy POD #3 Plan: -pt with expected lower back/T spine pain-working on trying to find a PO solution to her pain needs -CDI -PT/OT-CPM -Brace to be worn when out of bed-fits well -dixon out -Pain management, RIPSHEAR OPERATOR ordered, no need for precedex. Increased Oxycodone yesterday morning -Wear brace when out of bed-Smt Technician placed clamshell brace -no bending or twisting -IM on board for comanagement-appreciate input and care -Post op xrays look good -SCOTT in place-to be removed today -ok to transfer to floor -call neurosurgery with any questions/concerns -pt seen by Dr Esparza as well Subjective: No new complaints or concerns. Pt with expected lower back pain Objective: AAO x 3, PERRLA/EOMI no droop CN 2-12 grossly intact +lt touch Dressing c/d/i. SCOTT drain serosanginous-to be removed 5/5 and equal in BUE and BLE. Neuro Check Frequency: per routine Urinary Catheter in Place: No Catheter Insertion Date: 10/29/16 - Physician Discussed Patient with : Isaias Patient Seen by : Isaias Neurosurgery Physical Exam - Vitals, I&O, Labs I and O 10/31/16 11/01/16 11/02/16 05:59 05:59 05:59 Intake Total 1864 622 Output Total 7450 1630 Balance -5586 -1008 Intake: Oral (ml) 1150 IV Intake (ml) 423 320 IV Infused (ml) 291 302 HYDROmorphone HCL See 2 Protocol IV PRN PRN Rx#: [id number] Ns 1,000 ml @ 75 mls/hr 289 302 IV CONT TU Rx#: [id number] Output: Urine (ml) 6950 1500 Catheter 6950 1500 SCOTT Drain Output (ml) 500 130 #1 Left Back Reuben 500 130 Verdin Other: Number of Voids Catheter 2 Vital Signs Temp Pulse Resp BP Pulse Ox 36.6 C 86 17 82/62 L 94 11/01/16 04:00 11/01/16 04:00 11/01/16 04:00 11/01/16 04:00 11/01/16 04:00 Laboratory Results 10/30/16 08:50 11/01/16 05:07 ICD10 Worksheet Patient Problems: Problems Problem Status Onset H/O spinal fusion Acute Lumbago Acute Lumbar stenosis Acute Mitral valve regurgitation Acute
[2016-11-01] MEDS: LEVOTHYROXINE 88 MCG TAB PO SCH (07:33)
[2016-11-01] MEDS: FAMOTIDINE 20 MG TAB PO SCH ×2 (07:34→21:51)
[2016-11-01] MEDS: BUDESONIDE 3 MG EC CAP PO SCH (07:34)
[2016-11-01] MEDS: metFORMIN HCL 500 MG TAB PO SCH ×2 (07:34→17:44)
[2016-11-01] MEDS: METHOCARBAMOL 750 MG TAB PO SCH ×2 (07:35→17:45)
[2016-11-01] MEDS: SENNOSIDES/DOCUSATE SODIUM TAB PO SCH ×2 (07:40→21:49)
[2016-11-01] MEDS: ENOXAPARIN 40 MG/0.4 ML SYR SC SCH (07:40)
[2016-11-01] MEDS: Oxymorphone Hcl [Opana Er] 40 MG PO SCH ×2 (07:44→17:44)
[2016-11-01 07:48] LABS: HEMATOCRIT 27.6 % (38.0-47.0); HEMOGLOBIN 9.3 g/dL (12.6-16.3)
[2016-11-01] MEDS: oxyCODONE IR 5 MG TAB PO PRN ×3 (09:33→21:51)
[2016-11-01] MEDS: HYDROmorphONE/DILAUDID 4 MG TAB PO PRN ×3 (09:33→21:51)
[2016-11-01] MEDS: HYDROmorphONE/DILAUDID 6 MG/30 ML PCA IV PRN (14:28)
--- NOTE | 2016-11-01 17:40 | HOSPPROG ---
Hospitalist Progress Note Assessment/Plan: DIAGNOSES: -status post spine surgery with bone grafting and removal of hardware -pain management in patient with longstanding chronic pain syndrome -At this point I believe she actually is in need of more pain medicine and that should be time to better to meet with her various activities she and I have reviewed this with the patient and the nursing staff in detail. I am concerned that she is not getting enough activity and she is pretty much wiped out by the amount of pain at causes when she does any activity -hyponatremia, multifactorial, now resolved -history microscopic colitis on chronic low-dose budesonide; some history of adrenal insufficiency problems related to this but no sign of insufficiency now -Marfan syndrome; mitral valve replacement history PLANS: - may stop her oral fluid restriction at this time -continue current steroid - I do not think she needs any change in her prescribed pain medicines at this time but she could use more of them than she is and better timing with activities -PT OT SUBJECTIVE: wiped out today by the pain of her activities from today than yesterday and having quite a bit of pain right now no other new acute symptoms OBJECTIVE Vitals reviewed: Some mildly low blood pressures are actually at her chronic baseline General Service Officer, my review: Sinus rhythm Exam: alert oriented reasonably relaxed skin warm dry color ok resps not labored lungs clear BSs heart regular abd soft nondistended nontender, bowel sounds present limbs warm, no edema iv site ok Objective: Vital Signs Temp Pulse Resp BP Pulse Ox 36.7 C 95 16 109/68 98 11/01/16 16:00 11/01/16 16:00 11/01/16 16:00 11/01/16 16:00 11/01/16 16:00 Laboratory Results 11/01/16 07:40 11/01/16 05:07 10/31/16 11/01/16 11/02/16 06:59 06:59 06:59 Intake Total 3021 252 Output Total 6684 9975 [facility] -5527 -3030 ICD10 Worksheet Patient Problems: Problems Problem Status Onset H/O spinal fusion Acute Lumbago Acute Lumbar stenosis Acute Mitral valve regurgitation Acute
[2016-11-01] MEDS: LOPREEZA PO SCH (17:46)
[2016-11-01] MEDS: GABAPENTIN 300 MG CAP PO SCH (21:50)
[2016-11-01] MEDS: Suvorexant [Belsomra] 10 MG PO SCH (23:21)
[2016-11-01] MEDS: traZODone 100 MG TAB PO SCH (23:22)
[2016-11-01] MEDS: QUEtiapine FUMARATE 50 MG TAB PO SCH (23:22)
[2016-11-01] MEDS: DIAZEPAM 5 MG TAB PO SCH (23:22)
[2016-11-02] MEDS: oxyCODONE IR 5 MG TAB PO PRN ×5 (04:28→21:17)
[2016-11-02] MEDS: HYDROmorphONE/DILAUDID 4 MG TAB PO PRN ×5 (04:28→21:16)
[2016-11-02] MEDS: ACETAMINOPHEN 500 MG TAB PO SCH ×3 (04:28→21:15)
[2016-11-02] MEDS: Oxymorphone Hcl [Opana Er] 40 MG PO SCH ×2 (08:19→17:55)
[2016-11-02] MEDS: METHOCARBAMOL 750 MG TAB PO SCH ×2 (08:19→17:55)
[2016-11-02] MEDS: BUDESONIDE 3 MG EC CAP PO SCH (08:19)
[2016-11-02] MEDS: metFORMIN HCL 500 MG TAB PO SCH ×2 (08:19→17:55)
[2016-11-02] MEDS: LEVOTHYROXINE 88 MCG TAB PO SCH (08:19)
[2016-11-02] MEDS: FAMOTIDINE 20 MG TAB PO SCH ×2 (08:20→21:15)
[2016-11-02] MEDS: ENOXAPARIN 40 MG/0.4 ML SYR SC SCH (08:20)
[2016-11-02] MEDS: SENNOSIDES/DOCUSATE SODIUM TAB PO SCH ×2 (08:20→21:22)
--- NOTE | 2016-11-02 12:09 | NEUSURGPN ---
Date of Surgery: 10/29/16 Post Op Day: 4 Assessment/Plan: Assessment: 55 yr old female with multiple medical problems, s/p T8-T12 with S2 tie in fusion and T10-11 laminectomy POD #4 Plan: -pt with expected lower back/T spine pain-working on trying to find a PO solution to her pain needs -CDI -PT/OT-CPM -Brace to be worn when out of bed-fits well -Pain management, PUBLIC RELATIONS ASSOCIATE ordered, Increased Oxycodone pod#2 -no bending or twisting -IM on board for comanagement-appreciate input and care -Post op xrays look good -call neurosurgery with any questions/concerns Discussed patient with Dr Esparza Subjective: Patient having expected back pain with activity Objective: AAO x 3, PERRLA/EOMI no droop CN 2-12 grossly intact +lt touch Dressing c/d/i. 5/5 and equal in BUE and BLE. Neuro Check Frequency: per routine Urinary Catheter in Place: No Catheter Insertion Date: 10/29/16 - Physician Discussed Patient with : Isaias Neurosurgery Physical Exam - Vitals, I&O, Labs I and O 11/01/16 11/02/16 11/03/16 05:59 05:59 05:59 Intake Total 622 300 Output Total 1630 1000 Balance -1008 -700 Intake: IV Intake (ml) 320 IV Infused (ml) 302 300 Ns 1,000 ml @ 75 mls/hr 302 300 IV CONT TU Rx#: [id number] Output: Urine (ml) 1500 1000 Bedside Commode 1000 Catheter 1500 SCOTT Drain Output (ml) 130 #1 Left Back Reuben 130 Verdin Other: Intake Quantity Yes Sufficient Number of Voids Catheter 2 Vital Signs Temp Pulse Resp BP Pulse Ox 36.8 C 87 14 108/77 99 11/02/16 11:42 11/02/16 11:42 11/02/16 11:42 11/02/16 11:42 11/02/16 11:42 Laboratory Results 11/01/16 07:40 11/01/16 05:07 ICD10 Worksheet Patient Problems: Problems Problem Status Onset H/O spinal fusion Acute Lumbago Acute Lumbar stenosis Acute Mitral valve regurgitation Acute
[2016-11-02] MEDS: DIAZEPAM 5 MG TAB PO PRN (13:17)
--- NOTE | 2016-11-02 16:22 | HOSPPROG ---
Hospitalist Progress Note Assessment/Plan: DIAGNOSES: -status post spine surgery with bone grafting and removal of hardware -pain management in patient with longstanding chronic pain syndrome -continue current pain meds, coordinating med doses with her activities and prn additional -hyponatremia, multifactorial, now resolved -history microscopic colitis on chronic low-dose budesonide; some history of adrenal insufficiency problems related to this but no sign of insufficiency now -Marfan syndrome; mitral valve replacement history PLANS: - may stop her oral fluid restriction at this time -continue current steroid - I do not think she needs any change in her prescribed pain medicines at this time but she could use more of them than she is and better timing with activities -PT OT SUBJECTIVE: had a better day w pain management by coordinating medications with activities had an emotional breakdown today but feels much better about things after a nap no other new sxs doing well w mobility/PT/OT eating ok OBJECTIVE Vitals reviewed: Some mildly low blood pressures are actually at her chronic baseline Exam: alert oriented reasonably relaxed skin warm dry color ok resps not labored lungs clear BSs heart regular abd soft nondistended nontender, bowel sounds present limbs warm, no edema iv site ok Objective: Vital Signs Temp Pulse Resp BP Pulse Ox 36.6 C 78 14 79/44 L 100 11/02/16 15:16 11/02/16 15:16 11/02/16 15:16 11/02/16 15:16 11/02/16 15:16 Laboratory Results 11/01/16 07:40 11/01/16 05:07 11/01/16 11/02/16 11/03/16 06:59 06:59 06:59 Intake Total 622 300 Output Total 1630 1000 Balance -1008 -684 ICD10 Worksheet Patient Problems: Problems Problem Status Onset H/O spinal fusion Acute Lumbago Acute Lumbar stenosis Acute Mitral valve regurgitation Acute
[2016-11-02] MEDS: LOPREEZA PO SCH (17:55)
[2016-11-02] MEDS: HYDROmorphONE/DILAUDID 6 MG/30 ML PCA IV PRN (19:53)
[2016-11-02] MEDS: GABAPENTIN 300 MG CAP PO SCH (21:15)
[2016-11-02] MEDS: Suvorexant [Belsomra] 10 MG PO SCH (23:03)
[2016-11-02] MEDS: traZODone 100 MG TAB PO SCH (23:07)
[2016-11-02] MEDS: DIAZEPAM 5 MG TAB PO SCH (23:07)
[2016-11-02] MEDS: QUEtiapine FUMARATE 50 MG TAB PO SCH (23:07)
--- NOTE | 2016-11-03 07:54 | NEUSURGPN ---
Date of Surgery: 10/29/16 Post Op Day: 5 Assessment/Plan: Assessment: 55 yr old female with multiple medical problems, s/p T8-T12 with S2 tie in fusion and T10-11 laminectomy POD #5 Plan: -pt with expected lower back/T spine pain-working on trying to find a PO solution to her pain needs -CDI -PT/OT-CPM -Brace to be worn when out of bed-fits well -Pain management, HEAVY DUTY MECH[employer]IC FARM EQUIPMENT ordered, Increased Oxycodone pod#2, will try to wean HEAV[employer] MECH[employer] EQUIPMENT today -no bending or twisting -IM on board for tf-pxaejxqxdf-jbjbseviuz input and care -Post op xrays look good -call neurosurgery with any questions/concerns Subjective: Patient sleeping, comfortable Objective: PERRLA/EOMI no droop CN 2-12 grossly intact +lt touch Dressing c/d/i. 5/5 and equal BLE. Neuro Check Frequency: per routine Urinary Catheter in Place: No Catheter Insertion Date: 10/29/16 - Physician Discussed Patient with Dr.: Isaias Patient Seen by : Isaias Neurosurgery Physical Exam - Vitals, I&O, Labs I and O 11/02/16 11/03/16 11/04/16 05:59 05:59 05:59 Intake Total 300 4350 Output Total 1000 900 Balance -700 3450 Intake: Oral (ml) 4050 IV Infused (ml) 300 300 Ns 1,000 ml @ 75 mls/hr 300 300 IV CONT TU Rx#: [id number] Output: Urine (ml) 1000 900 Bedside Commode 1000 450 Toilet 450 Other: Intake Quantity Yes Yes Sufficient Number of Voids Bedside Commode 1 Toilet 2 Vital Signs Temp Pulse Resp BP Pulse Ox 37.1 C 84 16 104/57 L 98 11/03/16 04:00 11/03/16 04:00 11/03/16 04:00 11/03/16 04:00 11/03/16 04:00 Laboratory Results 11/01/16 07:40 11/01/16 05:07 ICD10 Worksheet Patient Problems: Problems Problem Status Onset H/O spinal fusion Acute Lumbago Acute Lumbar stenosis Acute Mitral valve regurgitation Acute
[2016-11-03] MEDS: ACETAMINOPHEN 500 MG TAB PO SCH ×3 (08:13→20:32)
[2016-11-03] MEDS: metFORMIN HCL 500 MG TAB PO SCH ×2 (08:22→17:18)
[2016-11-03] MEDS: BUDESONIDE 3 MG EC CAP PO SCH (08:22)
[2016-11-03] MEDS: FAMOTIDINE 20 MG TAB PO SCH ×2 (08:22→20:30)
[2016-11-03] MEDS: ENOXAPARIN 40 MG/0.4 ML SYR SC SCH (08:22)
[2016-11-03] MEDS: LEVOTHYROXINE 88 MCG TAB PO SCH (08:23)
[2016-11-03] MEDS: METHOCARBAMOL 750 MG TAB PO SCH ×2 (08:23→17:18)
[2016-11-03] MEDS: SENNOSIDES/DOCUSATE SODIUM TAB PO SCH (08:23)
[2016-11-03] MEDS: Oxymorphone Hcl [Opana Er] 40 MG PO SCH ×2 (09:17→17:42)
[2016-11-03] MEDS: HYDROmorphONE/DILAUDID 4 MG TAB PO PRN (11:49)
[2016-11-03] MEDS: oxyCODONE IR 5 MG TAB PO PRN ×2 (11:50→22:13)
--- NOTE | 2016-11-03 12:45 | HOSPPROG ---
Hospitalist Progress Note Assessment/Plan: 55y female with back pain, chronic condition. First encounter, chart reviewed. # status post spine surgery with bone grafting and removal of hardware PT/OT # pain management in patient with longstanding chronic pain syndrome -continue current pain meds, coordinating med doses with her activities and prn additional -timed pain meds -reviewed FENCE ERECTOR weaning # hyponatremia, multifactorial, now resolved # history microscopic colitis on chronic low-dose budesonide; some history of adrenal insufficiency problems related to this but no sign of insufficiency now will dc Senna per pt request # Marfan syndrome; mitral valve replacement history stable PLANS: - stop her oral fluid restriction at this time - continue current steroid - change pain meds to scheduled Q4 -PT OT Subjective: C/O pain. Not getting meds. Objective: Vital Signs Temp Pulse Resp BP Pulse Ox 37.7 C 94 16 94/60 L 100 11/03/16 12:00 11/03/16 12:00 11/03/16 12:00 11/03/16 12:00 11/03/16 12:00 Laboratory Results 11/01/16 07:40 11/01/16 05:07 11/02/16 11/03/16 11/04/16 05:59 05:59 05:59 Intake Total 300 4350 Output Total 1000 900 Balance -700 3450 - Physical Exam Constitutional: appears nourished, chronically ill appearing, uncomfortable Eyes: PERRL, anicteric sclera, EOMI Ears, Nose, Mouth, Throat: moist mucous membranes, hearing normal, ears appear normal Cardiovascular: regular rate and rhythym, No JVD, No edema Respiratory: no respiratory distress, no rales or rhonchi, reduced air movement Gastrointestinal: normoactive bowel sounds, No tenderness, No ascites Skin: warm, normal color, No erythema Musculoskeletal: pain with ROM, muscular tenderness, generalized weakness Neurologic: AAOx3 Psychiatric: not anxious, not encephalopathic, poor insight, poor judgement ICD10 Worksheet Patient Problems: Problems Problem Status Onset Mitral valve regurgitation Acute H/O spinal fusion Acute Lumbar stenosis Acute Lumbago Acute
[2016-11-03] MEDS ORDERED: oxyCODONE IR 5 MG TAB PO SCH (14:00)
[2016-11-03] MEDS ORDERED: HYDROmorphONE/DILAUDID 4 MG TAB PO SCH (14:00)
[2016-11-03] MEDS: HYDROmorphONE/DILAUDID 4 MG TAB PO SCH ×3 (15:56→23:34)
[2016-11-03] MEDS: oxyCODONE IR 5 MG TAB PO SCH ×3 (15:57→23:33)
[2016-11-03] MEDS: LOPREEZA PO SCH (17:18)
[2016-11-03] MEDS: NS 1,000 ML IV SCH (19:22)
[2016-11-03] MEDS: GABAPENTIN 300 MG CAP PO SCH (20:30)
[2016-11-03] MEDS: QUEtiapine FUMARATE 50 MG TAB PO SCH (23:31)
[2016-11-03] MEDS: traZODone 100 MG TAB PO SCH (23:32)
[2016-11-03] MEDS: DIAZEPAM 5 MG TAB PO SCH (23:32)
[2016-11-04] MEDS: Suvorexant [Belsomra] 10 MG PO SCH (00:03)
[2016-11-04] MEDS: oxyCODONE IR 5 MG TAB PO SCH ×6 (04:04→23:04)
[2016-11-04] MEDS: HYDROmorphONE/DILAUDID 4 MG TAB PO SCH ×6 (04:06→23:04)
[2016-11-04] MEDS: ACETAMINOPHEN 500 MG TAB PO SCH ×3 (04:06→21:12)
--- NOTE | 2016-11-04 08:02 | NEUSURGPN ---
Assessment/Plan: Assessment: 55 yr old female with multiple medical problems, s/p T8-T12 with S2 tie in fusion and T10-11 laminectomy POD #6 Plan: -pt with expected lower back/T spine pain-working on trying to find a PO solution to her pain needs. Off of PHARMACEUTICAL BOTANIST - continue current oral regimen. -CDI -PT/OT-CPM -Brace to be worn when out of bed-fits well -no bending or twisting -IM on board for rs-peuzqjddmd-kdpgajpufa input and care -Post op xrays look good -call neurosurgery with any questions/concerns -Dispo: work towards DC likely to SNF - looks like she was denied for [facility] inpatient rehab. -Pt seen and D/w Dr Esparza Subjective: Pt resting in bed sleeping, she states she is happy to be off the PHARMACEUTICAL BOTANIST and "Cut a deal" yesterday and doesn't want anymore IV meds. Objective: Sleeping but awakens easily VSS NAD MAEx4 Motor 5/5 BLE Incision dressed cdi +LT Urinary Catheter in Place: No Catheter Insertion Date: 10/29/16 - Physician Discussed Patient with : Isaias Patient Seen by : Isaias Neurosurgery Physical Exam - Vitals, I&O, Labs I and O 11/03/16 11/04/16 11/05/16 05:59 05:59 05:59 Intake Total 4350 500 Output Total 900 3500 Balance 3450 -3000 Intake: Oral (ml) 4050 500 IV Infused (ml) 300 Ns 1,000 ml @ 75 mls/hr 300 IV CONT TU Rx#: [id number] Output: Urine (ml) 900 3500 Bedside Commode 450 3500 Toilet 450 Other: Intake Quantity Yes Yes Sufficient Number of Voids Bedside Commode 1 Toilet 2 Vital Signs Temp Pulse Resp BP Pulse Ox 37.0 C 74 16 102/61 95 11/04/16 04:00 11/04/16 04:00 11/04/16 04:00 11/04/16 04:00 11/04/16 04:00 Laboratory Results 11/01/16 07:40 11/01/16 05:07 ICD10 Worksheet Patient Problems: Problems Problem Status Onset H/O spinal fusion Acute Lumbago Acute Lumbar stenosis Acute Mitral valve regurgitation Acute
[2016-11-04] MEDS: BUDESONIDE 3 MG EC CAP PO SCH (08:25)
[2016-11-04] MEDS: LEVOTHYROXINE 88 MCG TAB PO SCH (08:26)
[2016-11-04] MEDS: METHOCARBAMOL 750 MG TAB PO SCH ×2 (08:26→17:59)
[2016-11-04] MEDS: metFORMIN HCL 500 MG TAB PO SCH ×2 (08:26→17:59)
[2016-11-04] MEDS: Oxymorphone Hcl [Opana Er] 40 MG PO SCH ×2 (08:27→18:12)
[2016-11-04] MEDS: FAMOTIDINE 20 MG TAB PO SCH ×2 (08:27→20:08)
[2016-11-04] MEDS: ENOXAPARIN 40 MG/0.4 ML SYR SC SCH (08:28)
[2016-11-04 08:51] LABS: HEMATOCRIT 24.1 % (38.0-47.0); HEMOGLOBIN 7.9 g/dL (12.6-16.3)
[2016-11-04 09:14] LABS: ANION GAP 6 mEq/L (8-16); CALCIUM 8.5 mg/dL (8.5-10.4); CARBON DIOXIDE 29 mEq/l (22-31); CHLORIDE 102 mEq/L (97-110); CREATININE 0.6 mg/dL (0.6-1.0); GLOMERULAR FILTRATION RATE > 60; GLUCOSE 82 mg/dL (70-100); POTASSIUM 3.9 mEq/L (3.5-5.2); SODIUM 137 mEq/L (134-144)
--- NOTE | 2016-11-04 09:56 | HOSPPROG ---
Hospitalist Progress Note Assessment/Plan: Patient is a 55-year-old female with history of multiple back surgeries underwent a T10/11 thoracic laminectomy, T8-L2 fusion and thoracic hardware removal at T12 and L1. The patient has a history of multiple medical problems. Today is my 1st encounter with the patient. Chart reviewed. * chronic back pain Status post T8-T12 with S2 fusion and T10-11 laminectomy postop day 6. Continue PT and OT * chronic pain syndrome on continuous narcotics ambulating well with PT cont current regimen * hyponatremia resolved * anemia with hx of valvular heart disease and hypotension will transfuse a unit of prbc's monitor for s/sx of any heart failure with the transfusion * history of microvascular colitis On chronic low dose budesonide * Marfan syndrome with history mitral valve replacement in 2013 *Plan: transfuse today, hopefully, can be dc per neurosurgery team tomorrow/ has her own animal trainer to work with her for rehab. Subjective: Migdalia said she knew this would be a painful surgery and is doing okay/ no significant complaints this morning. Objective: Vital Signs Temp Pulse Resp BP Pulse Ox 37.0 C 72 16 83/53 L 94 11/04/16 08:00 11/04/16 08:00 11/04/16 08:00 11/04/16 08:00 11/04/16 08:00 Laboratory Results 11/04/16 08:46 11/04/16 08:46 11/03/16 11/04/16 11/05/16 05:59 05:59 05:59 Intake Total 4350 500 Output Total 900 3500 Balance 3450 -3000 - Physical Exam Constitutional: appears nourished, No not in pain Eyes: PERRL Ears, Nose, Mouth, Throat: hearing normal Cardiovascular: other (diff to ausculate heart sounds, patient has large brace in place.) Respiratory: no respiratory distress Skin: warm Musculoskeletal: generalized weakness Neurologic: AAOx3, pronator drift Psychiatric: interacting appropriately, not anxious, not encephalopathic ICD10 Worksheet Patient Problems: Problems Problem Status Onset H/O spinal fusion Acute Lumbago Acute Lumbar stenosis Acute Mitral valve regurgitation Acute
[2016-11-04] MEDS ORDERED: ACETAMINOPHEN 500 MG TAB PO ONE (10:16)
[2016-11-04] MEDS: LOPREEZA PO SCH (18:01)
[2016-11-04] MEDS: GABAPENTIN 300 MG CAP PO SCH (21:14)
[2016-11-04] MEDS: QUEtiapine FUMARATE 50 MG TAB PO SCH ×2 (23:41→23:43)
[2016-11-04] MEDS: traZODone 100 MG TAB PO SCH (23:41)
[2016-11-04] MEDS: DIAZEPAM 5 MG TAB PO SCH (23:41)
[2016-11-05] MEDS: HYDROmorphONE/DILAUDID 4 MG TAB PO SCH ×6 (04:17→23:49)
[2016-11-05] MEDS: oxyCODONE IR 5 MG TAB PO SCH ×6 (04:18→23:49)
[2016-11-05] MEDS: Suvorexant [Belsomra] 10 MG PO SCH ×2 (04:23→23:48)
[2016-11-05 05:14] LABS: HEMOGLOBIN 9.3 g/dL (12.6-16.3)
[2016-11-05] MEDS: ACETAMINOPHEN 500 MG TAB PO SCH ×3 (05:22→21:16)
--- NOTE | 2016-11-05 07:31 | NEUSURGPN ---
Date of Surgery: 10/29/16 Post Op Day: 7 Assessment/Plan: Assessment: 55 yr old female with multiple medical problems, s/p T8-T12 with S2 tie in fusion and T10-11 laminectomy POD #7 Plan: -pt with expected lower back/T spine pain-working on trying to find a PO solution to her pain needs. 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 Migdalia says she is better overall -CDI-dressing dry -PT/OT-CPM -Brace to be worn when out of bed-fits well-pt tolerating well -no bending or twisting -IM on board for vf-iatokezplt-vznqydzsur input and care -Post op xrays look good -call neurosurgery with any questions/concerns -Dispo: work towards DC likely to SNF - looks like she was denied for [facility] inpatient rehab. 2 facilities to visit with Migdalia today about placement -Pt seen and D/w Dr Esparza Subjective: Awake and alert. NAD. Pt with expected T/L spine. No platt/neck/chest/abd or gu complaints. Objective: Sleeping but awakens easily VSS NAD MAEx4 Motor 5/5 BLE Incision dressed cdi +LT Neuro Check Frequency: per routine Urinary Catheter in Place: No Catheter Insertion Date: 10/29/16 - Physician Discussed Patient with : Isaias Patient Seen by : Isaias Neurosurgery Physical Exam - Vitals, I&O, Labs I and O 11/04/16 11/05/16 11/06/16 05:59 05:59 05:59 Intake Total 500 300 Output Total 3500 300 Balance -3000 0 Intake: Oral (ml) 500 300 Output: Urine (ml) 3500 300 Bedside Commode 3500 Toilet 300 Other: Intake Quantity Yes Sufficient Number of Voids Toilet 3 Vital Signs Temp Pulse Resp BP Pulse Ox 36.6 C 70 16 106/76 97 11/05/16 04:00 11/05/16 04:00 11/05/16 04:00 11/05/16 04:00 11/05/16 04:00 Laboratory Results 11/05/16 04:15 11/04/16 08:46 ICD10 Worksheet Patient Problems: Problems Problem Status Onset H/O spinal fusion Acute Lumbago Acute Lumbar stenosis Acute Mitral valve regurgitation Acute
[2016-11-05] MEDS: BUDESONIDE 3 MG EC CAP PO SCH (07:46)
[2016-11-05] MEDS: FAMOTIDINE 20 MG TAB PO SCH ×2 (07:46→19:58)
[2016-11-05] MEDS: LEVOTHYROXINE 88 MCG TAB PO SCH (07:47)
[2016-11-05] MEDS: metFORMIN HCL 500 MG TAB PO SCH ×2 (07:47→16:03)
[2016-11-05] MEDS: ENOXAPARIN 40 MG/0.4 ML SYR SC SCH (07:47)
[2016-11-05] MEDS: METHOCARBAMOL 750 MG TAB PO SCH ×2 (07:47→16:03)
[2016-11-05] MEDS: Oxymorphone Hcl [Opana Er] 40 MG PO SCH ×2 (08:01→16:49)
[2016-11-05] MEDS: DIAZEPAM 5 MG TAB PO PRN (09:45)
--- NOTE | 2016-11-05 10:26 | HOSPPROG ---
Hospitalist Progress Note Assessment/Plan: Patient is a 55-year-old female with history of multiple back surgeries underwent a T10/11 thoracic laminectomy, T8-L2 fusion and thoracic hardware removal at T12 and L1. The patient has a history of multiple medical problems. * chronic back pain Status post T8-T12 with S2 fusion and T10-11 laminectomy postop day 7. Continue PT and OT * chronic pain syndrome on continuous narcotics ambulating well with PT cont current regimen * hyponatremia resolved * anemia Much improved with transfusion * history of microvascular colitis On chronic low dose budesonide Patient is on a very strict diet. provides her breakfast in the morning * Marfan syndrome with history mitral valve replacement in 2013 *Plan: She will likely go to the shelter facility later today per Neurosurgery. Subjective: Patient states that she does best in the morning by the afternoon she is not doing as well Objective: Vital Signs Temp Pulse Resp BP Pulse Ox 37.1 C 73 14 83/54 L 98 11/05/16 08:00 11/05/16 08:00 11/05/16 08:00 11/05/16 08:00 11/05/16 08:00 Laboratory Results 11/05/16 04:15 11/04/16 08:46 11/04/16 11/05/16 11/06/16 05:59 05:59 05:59 Intake Total 500 300 Output Total 3500 300 650 Balance -3000 0 -650 - Physical Exam Constitutional: no apparent distress, appears nourished Eyes: PERRL Ears, Nose, Mouth, Throat: hearing normal Respiratory: no respiratory distress Skin: warm Musculoskeletal: generalized weakness Neurologic: AAOx3 Psychiatric: interacting appropriately ICD10 Worksheet Patient Problems: Problems Problem Status Onset H/O spinal fusion Acute Lumbago Acute Lumbar stenosis Acute Mitral valve regurgitation Acute
[2016-11-05] MEDS: LOPREEZA PO SCH (16:49)
[2016-11-05] MEDS: oxyCODONE IR 5 MG TAB PO PRN ×2 (16:50→21:16)
[2016-11-05 17:25] VITALS: RESP 16
[2016-11-05] MEDS: GABAPENTIN 300 MG CAP PO SCH (21:16)
[2016-11-05] MEDS: QUEtiapine FUMARATE 50 MG TAB PO SCH (23:48)
[2016-11-05] MEDS: DIAZEPAM 5 MG TAB PO SCH (23:49)
[2016-11-05] MEDS: traZODone 100 MG TAB PO SCH (23:49)
[2016-11-06] MEDS: HYDROmorphONE/DILAUDID 4 MG TAB PO SCH ×3 (04:11→13:03)
[2016-11-06] MEDS: oxyCODONE IR 5 MG TAB PO SCH ×3 (04:11→13:03)
[2016-11-06] MEDS: ACETAMINOPHEN 500 MG TAB PO SCH (07:23)
[2016-11-06 07:31] VITALS: BP 109/66; PULSE 74; TEMP 98.5; O2SAT 94
--- NOTE | 2016-11-06 08:15 | NEUSURGPN ---
Assessment/Plan: Assessment: 55 yr old female with multiple medical problems, s/p T8-T12 with S2 tie in fusion and T10-11 laminectomy POD #8 Plan: -pt with expected lower back/T spine pain. Off of INTERMEDIATE MANAGER - continue current oral regimen. Migdalia says she is better overall -CDI-dressing dry, steri strips in place -PT/OT-CPM -Brace to be worn when out of bed-fits well-pt tolerating well -no bending or twisting -IM has signed off-appreciate input and care -Post op xrays look good -call neurosurgery with any questions/concerns -Dispo: work towards DC to home with [facility] -Pt seen and D/w Dr Esparza Subjective: Pt resting in bed, wants to go home with [facility] and use same company that took care of her parents. Objective: AAOx3 NAD VSS MAEx4 Motor 5/5 BLE Incision cdi steri strips in place +LT Urinary Catheter in Place: No Catheter Insertion Date: 10/29/16 - Physician Discussed Patient with : Isaias Patient Seen by : Isaias Neurosurgery Physical Exam - Vitals, I&O, Labs I and O 11/05/16 11/06/16 11/07/16 05:59 05:59 05:59 Intake Total 300 Output Total 300 650 Balance 0 -650 Intake: Oral (ml) 300 Output: Urine (ml) 300 650 Toilet 300 650 Other: Intake Quantity Yes Sufficient Number of Voids Toilet 3 Vital Signs Temp Pulse Resp BP Pulse Ox 36.9 C 74 16 109/66 94 11/06/16 07:30 11/06/16 07:30 11/06/16 07:30 11/06/16 07:30 11/06/16 07:30 Laboratory Results 11/05/16 04:15 11/04/16 08:46 ICD10 Worksheet Patient Problems: Problems Problem Status Onset H/O spinal fusion Acute Lumbago Acute Lumbar stenosis Acute Mitral valve regurgitation Acute
[2016-11-06] MEDS: metFORMIN HCL 500 MG TAB PO SCH (08:46)
[2016-11-06] MEDS: LEVOTHYROXINE 88 MCG TAB PO SCH (08:46)
[2016-11-06] MEDS: BUDESONIDE 3 MG EC CAP PO SCH (08:46)
[2016-11-06] MEDS: Oxymorphone Hcl [Opana Er] 40 MG PO SCH (08:47)
[2016-11-06] MEDS: METHOCARBAMOL 750 MG TAB PO SCH (08:47)
[2016-11-06] MEDS: ENOXAPARIN 40 MG/0.4 ML SYR SC SCH (08:48)
[2016-11-06] MEDS: FAMOTIDINE 20 MG TAB PO SCH (08:48)
[2016-11-06] MEDS: oxyCODONE IR 5 MG TAB PO PRN (10:53)
--- NOTE | 2016-11-06 12:32 | PDIAF ---
- Diagnosis Code Status: Full Code - Medication Management Discharge Medications: Medications to Continue on Transfer Metformin HCl [Metformin 1000 mg] 1,000 mg PO BID@03/19/13 [Last Taken 10/27/16] Methocarbamol [Robaxin 750 mg (*)] 750 mg PO BID@729,03/19/13 [Last Taken 07:30] Budesonide [Budesonide EC] 9 mg PO DAILY@72905/01/14 [Last Taken 10/29/16 07: 30] Cyanocobalamin [Vitamin B12 1000MCG/ML (*)] 1,000 mcg IM Q30D 05/01/14 [Last Taken 10/27/16] Diazepam [Valium 10 MG (*)] 10 mg PO DAILY@232905/01/14 [Last Taken 10/28/16 23 :30] Estradiol/Norethindrone Acet [Activella 1 mg-0.5 mg Tablet] 1 each PO DAILY@05/01/14 [Last Taken 10/28/16 16:45] Rizatriptan Benzoate [Maxalt Rubber Insulator] 10 mg PO DAILY PRN 05/01/14 [Last Taken ] medroxyPROGESTERone ACETATE [Provera] 5 mg PO DAILY@05/01/14 [Last Taken 11/06 16:45] HYDROmorphone HCL [Dilaudid] 8 mg PO Q3-4PRN PRN 03/14/15 [Last Taken 10/25/16] Oxymorphone HCl [Opana ER] 40 mg PO BID@03/21/15 [Last Taken 10/29/16 07 :30] Cyclobenzaprine [Flexeril 10 MG (*)] 10 mg PO DAILY PRN 07/14/15 [Last Taken 11/06 16:45] Gabapentin [Neurontin 300 MG (*)] 1,200 mg PO DAILY@07/14/15 [Last Taken 11/06 22:00] QUEtiapine FUMARATE [Seroquel 50 mg (*)] 50 mg PO DAILY@232911/08/15 [Last Taken 10/28/16 23:30] Suvorexant [Belsomra] 10 mg PO DAILY@232911/08/15 [Last Taken 10/28/16 23:30] oxyCODONE IR [Oxycodone Ir (*)] 15 mg PO Q3-4PRN PRN 11/08/15 [Last Taken 11:00] traZODone [traZODONE 100MG (*)] 100 mg PO DAILY@2330 11/08/15 [Last Taken 23:30] Diazepam [Valium 10 MG (*)] 10 mg PO DAILY PRN 10/06/16 [Last Taken Unknown] Levothyroxine [Synthroid 88 mcg (*)] 88 mcg PO DAILY@72910/06/16 [Last Taken 10/29/16 07:30] Acetaminophen [Tylenol ES 500 mg (*)] 1,000 mg PO Q8HRS #0 tab 11/06/16 [Last Taken Unknown] oxyCODONE IR [Oxycodone Ir (*)] 5 - 10 mg PO Q2 PRN #100 tab 11/06/16 [Last Taken Unknown] Discharge Medications: Refer to the Discharge Home Medication list for PRN reason. PICC Care - Routine: N/A - Orders Services needed: Home Care, Certified Aeronautical Inspector, Physical Therapy, Occupational Therapy Home Care Face to Face: I certify that this patient was under my care and that I had the required [id number] encounter meeting the encounter requirements on the discharge day. My findings support the fact that the patient is homebound as defined in CMS Chapter 7 Medicare Benefits Manual 30.1.1, The condition of the patient is such that there exists a normal inability to leave home and consequently, leaving home would require a considerable and taxing effort. Diet Recommendation: no restrictions on diet Diet Texture: Regular Texture Diet - Follow Up Care Current Providers and Referrals: Bryan Arias MD [Primary Care Provider] - Carmen Esparza MD [Medical Doctor] -
[2016-11-27] MEDS ORDERED: CYANO/VITAMIN B12 1000 MCG/ML VIAL IM SCH (12:45)
== END 2016-11-06 13:56 | disposition home health service (06) | DRG 460 ==
LOC: F3N 11:22 → F2N 19:56 → F3N 11-01 13:12
PROVIDERS: ADMIT Neurological Surgery; ATTEND Neurological Surgery
PROC: 0RGA0AJ Fusion of Thoracolumbar Vertebral Joint with Interbody Fusion Device, Posterior Approach, Anterior Column, Open Approach (ICD-10-PCS; principal; 2016-10-29 13:15)
PROC: 00NX0ZZ Release Thoracic Spinal Cord, Open Approach (ICD-10-PCS; principal; 2016-10-29 13:15)
PROC: 0RG70AJ Fusion of 2 to 7 Thoracic Vertebral Joints with Interbody Fusion Device, Posterior Approach, Anterior Column, Open Approach (ICD-10-PCS; principal; 2016-10-29 13:15)
PROC: 0SG00AJ Fusion of Lumbar Vertebral Joint with Interbody Fusion Device, Posterior Approach, Anterior Column, Open Approach (ICD-10-PCS; principal; 2016-10-29 13:15)
PROC: 0RP Upper Joints, Removal (ICD-10-PCS; principal; 2016-10-29 13:15)
PROC: 30233N1 Transfusion of Nonautologous Red Blood Cells into Peripheral Vein, Percutaneous Approach (ICD-10-PCS; 2016-10-30)
DX: M51.34 Other intervertebral disc degeneration, thoracic region (principal); E87.1 Hypo-osmolality and hyponatremia; M48.04 Spinal stenosis, thoracic region; M41.26 Other idiopathic scoliosis, lumbar region; G89.4 Chronic pain syndrome; Z98.1 Arthrodesis status; Z95.4 Presence of other heart-valve replacement; G47.31 Primary central sleep apnea; E03.9 Hypothyroidism, unspecified; E11.9 Type 2 diabetes mellitus without complications; E21.3 Hyperparathyroidism, unspecified; Z87.891 Personal history of nicotine dependence
CPT/HCPCS: 97116-GP; 97161-GP; 97165-GO; 97530-GO; 97530-GP; 97535-GO; C1713; G8978-GP-CJ; G8979-GP-CI; G8987-GO-CK; G8988-GO-CI; G8989-GO-CI; J0690; J1100; J1170; J1650; J2250; J2370; J2405; J2704; J3010; J3370; P9016; P9041

== ENCOUNTER → 2016-12-21 | Outpatient (CLI) | payer OTHER | LOC: FIMAGING 11:52 | PROVIDERS: ATTEND Physician Assistant | DX: Z09 Encounter for follow-up examination after completed treatment for conditions other than malignant neoplasm (principal); Z98.1 Arthrodesis status ==

== ENCOUNTER → 2017-03-21 | Outpatient (CLI) | payer OTHER | LOC: FIMAGING 11:02 | PROVIDERS: ATTEND Physician Assistant | DX: Z09 Encounter for follow-up examination after completed treatment for conditions other than malignant neoplasm (principal); Z98.1 Arthrodesis status ==

== ENCOUNTER 2017-07-04 18:06 | Emergency (ER) | payer OTHER ==
[2017-07-04] MEDS ORDERED: NS 1,000 ML IV ONE (19:30)
[2017-07-04] MEDS ORDERED: HYDROmorphONE/DILAUDID 2 MG/ML INJ IVP ONE ×2 (19:30→20:03)
--- NOTE | 2017-07-04 19:30 | EDPHY ---
H & P Time Seen by Provider: 07/04/17 19:07 HPI/ROS: CHIEF COMPLAINT: Perineal pain and swelling HISTORY OF PRESENT ILLNESS: Patient states she developed left-sided perineal pain and swelling about for 5 days ago. She was up in [place] at that time. She states it began as a small area and over the last 3 days has increased in size from front to back and is now extremely painful. She also states she has had some feverish feelings last night. She denies nausea, vomiting, diarrhea. She denies any stool changes. She has had no urinary or vaginal symptoms. Contents of 10 point review of systems otherwise negative except for what is mentioned in HPI. General Appearance: Alert, no distress. Eyes: Pupils equal and round no pallor or injection. ENT, Mouth: Mucous membranes dry. Respiratory: There are no retractions, lungs are clear to auscultation. Cardiovascular: Regular rate and rhythm. Gastrointestinal: Abdomen is soft and nontender, no masses, bowel sounds normal. Patient with very large perirectal abscess that is on the left side. Measures approximately 10 x 5 cm. Digital rectal exam with no blood but tenderness without fluctuance to the left rectal wall. Neurological: Alert, oriented, no focal neurologic deficits. Skin: Warm and dry, no rashes. Musculoskeletal: Neck is supple nontender. Extremities are symmetrical, full range of motion, no edema. Psychiatric: Patient is oriented X 3, there is no agitation. Medical/surgical history: Marfans, mitral valve surgery, spinal surgeries. Thyroid disease. Social history: Nonsmoker, lives with . Smoking Status: Former smoker Constitutional: Initial Vital Signs Temperature (C) 36.9 C 07/04/17 18:19 Heart Rate 105 H 07/04/17 18:19 Respiratory Rate 16 07/04/17 18:19 Blood Pressure 153/91 H 07/04/17 18:19 O2 Sat (%) 97 07/04/17 18:19 O2 Delivery Mode Room Air Allergies/Adverse Reactions: fentanyl [From Duragesic] Allergy (Severe, Verified 07/04/17 18:16) seizures codeine [Codeine] Allergy (Intermediate, Verified 07/04/17 18:16) flu like symptoms,nausea prednisone Allergy (Intermediate, Verified 07/04/17 18:16) martell face hydrocortisone Allergy (Verified 07/04/17 18:16) nisentil Allergy (Severe, Uncoded 07/04/17 18:16) anaphalytic Home Medications: Medication Instructions Recorded Metformin HCl [Metformin 1000 mg] 1,000 mg PO BID@729,03/19/13 Methocarbamol [Robaxin 750 mg (*)] 750 mg PO BID@729,03/19/13 Budesonide [Budesonide EC] 9 mg PO DAILY@72905/01/14 Cyanocobalamin [Vitamin B12 1,000 mcg IM Q30D 05/01/14 1000MCG/ML (*)] Diazepam [Valium 10 MG (*)] 10 mg PO DAILY@232905/01/14 Estradiol/Norethindrone Acet 1 each PO DAILY@05/01/14 [Activella 1 mg-0.5 mg Tablet] Rizatriptan Benzoate [Maxalt Machine Tool Builder] 10 mg PO DAILY PRN 05/01/14 medroxyPROGESTERone ACETATE 5 mg PO DAILY@05/01/14 [Provera] HYDROmorphone HCL [Dilaudid] 8 mg PO Q3-4PRN PRN 03/14/15 Cyclobenzaprine [Flexeril 10 MG 10 mg PO DAILY PRN 07/14/15 (*)] Gabapentin [Neurontin 300 MG (*)] 1,200 mg PO DAILY@07/14/15 QUEtiapine FUMARATE [Seroquel 50 50 mg PO DAILY@232911/08/15 mg (*)] Suvorexant [Belsomra] 10 mg PO DAILY@232911/08/15 traZODone [traZODONE 100MG (*)] 100 mg PO DAILY@232911/08/15 Diazepam [Valium 10 MG (*)] 10 mg PO DAILY PRN 10/06/16 Levothyroxine [Synthroid 88 mcg 88 mcg PO DAILY@72910/06/16 (*)] oxyCODONE IR [Oxycodone Ir (*)] 5 - 10 mg PO Q2 PRN #100 tab 11/06/16 Ciprofloxacin 500Mg Prepack#2 2 tab TAKEHOME EDNOW 1 Days #1 btl 07/04/17 [Cipro 500Mg Prepack#2] Ciprofloxacin [Cipro] 500 mg PO BID #14 tab 07/04/17 Oxycontin 07/04/17 Medical Decision Making ED Course/Re-evaluation: Discussed with Dr. Meraz, will come to see patient. 1939 Dr. Meraz performed bedside incision and drainage with copious pus expressed. Also given IV pain medications. He recommends Sitz baths, ciprofloxacin and follow up with general surgery office next week. Differential Diagnosis: Differential diagnosis includes but not is not limited to perirectal abscess, rectal fissure, pilonidal cyst, bartholin cyst. After evaluation large perirectal abscess noted. Incision and drainage per Dr. Meraz, general surgery. No signs of systemic illness. Will treat with antibiotics and close follow-up. Stable for discharge. - Data Points Medications Given: Discontinued Medications Hydromorphone HCl (Dilaudid) 0.5 mg IVP EDNOW ONE Stop: 07/04/17 20:04 Last Admin: 07/04/17 20:04 Dose: 0.5 mg Departure - Departure Clinical Impression: Abscess and cellulitis of gluteal region, Encounter for incision and drainage procedure Condition: Fair Instructions: Ciprofloxacin (By mouth), Anorectal Abscess and Anal Fistula (ED) Additional Instructions: Do Sitz bath as twice a day as discussed with General surgery. Follow up with Dr. Meraz next week. Return to the emergency department if he develops fevers, chills or worsening symptoms. Antibiotics as prescribed. Referrals: Bryan Arias MD [Primary Care Provider] - As per Instructions Prescriptions: Ciprofloxacin [Cipro] 500 mg PO BID #14 tab Ciprofloxacin 500Mg Prepack#2 [Cipro 500Mg Prepack#2] 2 tab TAKEHOME EDNOW 1 Days #1 btl
[2017-07-04] MEDS ORDERED: HYDROmorphONE/DILAUDID 2 MG/ML INJ ONE (20:01)
--- NOTE | 2017-07-04 21:18 | GCON ---
[f rep st] CONSULTATION DATE OF CONSULTATION: 07/03/2017 REASON FOR EVALUATION: Perianal abscess. REQUESTING PHYSICIAN: Huong Villela MD. HISTORY OF PRESENT ILLNESS: 56-year-old female with a significant past history for a Marfan syndrome. She reports a 4-day history of progressive rectal pain. She felt febrile yesterday. She had been driving cross-country from [facility] back home during this interim time. She presented to the emergency room with severe worsening buttock pain despite use of her chronic long-acting narcotic analgesics. She denies an antecedent history of diarrhea or constipation. She denies a prior history of a buttock abscess. She has had multiple colonoscopies, she is followed with Dr. Manning. PAST MEDICAL HISTORY: Marfan disease, microscopic colitis, adrenal insufficiency, anxiety, chronic back pain, insomnia, narcolepsy. PAST SURGICAL HISTORY: Multiple spinal interventions, bilateral tubal ligation , hemorrhoidectomy, left radial fracture ORIF. HOME MEDICATIONS: Metformin, Robaxin, budesonide, vitamin B12, Valium, Activella, Maxalt, Provera, Dilaudid, Flexeril, Neurontin, Seroquel, Belsomra, trazodone, oxycodone, OxyContin. ALLERGIES: Fentanyl (seizure), codeine (GI upset/flu-like symptoms), Nisentil ( anaphylaxis) . SOCIAL HISTORY: No significant alcohol or tobacco. PHYSICAL EXAMINATION: VITAL SIGNS: Temperature 36.9, blood pressure 150/90, pulse 105, respirations 16. GENERAL APPEARANCE: Patient is currently alert, uncomfortable, anicteric. HEART: Regular. LUNGS: Clear. ABDOMEN: Soft, nontender. SKIN: Buttock with a tender, erythematous, fluctuant left buttock abscess extending toward her perineum with notable fluctuance. PROCEDURE: The perianal abscess was anesthetized with 1% lidocaine and 0.5% Marcaine. A transverse incision was created over the epicenter of the abscess cavity. A hemostat was passed into the deep tunneling cavity. Large volumes of purulence were expressed. A 1/4-inch Emanuel drain was placed within the cavity. The patient expressed immediate relief upon completion. IMPRESSION: 1. Perianal abscess - 1st episode. 2. History of Marfan disease with multiple prior spinal instrumentations as well as mitral valve repair. RECOMMENDATIONS: Would complete a short course of antibiotics given the patient 's extensive prior instrumentations as well as perianal cellulitis. Will plan to see her back in followup in 1 week. Local wound care instructions were explained to the patient and prior to leaving. Care plan and recommendations were also discussed with the emergency room physician amortization clerk. /[id number]/MODL MTDD
[2017-07-04] MEDS ORDERED: CIPROFLOXACIN 500MG PREPACK#2 BTL TAKEHOME ONE ×2 (21:20→21:21)
[2017-07-04 21:28] VITALS: BP 138/82
== END 2017-07-04 21:28 | disposition home or self-care (01) ==
PROC: 0D9QXZZ Drainage of Anus, External Approach (ICD-10-PCS; principal; 2017-07-04)
DX: K61.0 Anal abscess (principal); Z87.891 Personal history of nicotine dependence; E86.9 Volume depletion, unspecified
CPT/HCPCS: 46050; 96374; 99284; J1170

== ENCOUNTER → 2017-07-10 | Outpatient (CLI) | payer OTHER | LOC: FIMAGING 12:49 → EDSTATUS 12:52 | PROVIDERS: ATTEND Physician Assistant | DX: Z98.1 Arthrodesis status (principal) ==

== ENCOUNTER 2017-07-22 05:44 | Day surgery (SDC) | payer OTHER ==
[2017-07-22] MEDS ORDERED: ceFAZolin 2 GM/SWFI 2 GM/20 ML SYR IVP ONE (06:09)
[2017-07-22] MEDS ORDERED: LIDOCAINE 1% 2 ML INJ ID PRN (06:11)
[2017-07-22] MEDS ORDERED: LR 1,000 ML IV ONE (06:11)
[2017-07-22] MEDS ORDERED: CHLORHEXIDINE GLUC HIBICLENS 118 ML BTL TP ONE (06:50)
[2017-07-22] MEDS ORDERED: BUPIVACAINE 0.25% 30 ML SDV ONE (06:50)
[2017-07-22] MEDS ORDERED: THROMBIN (BOVINE) 5,000 UNIT VIAL TP ONE (06:51)
[2017-07-22] MEDS ORDERED: DEPO METHYLPREDNISOLONE 40 MG/ML SDV ONE (06:51)
[2017-07-22] MEDS ORDERED: BACITRACIN 50,000 UNITS/10 ML SYR IRR ONE (06:52)
[2017-07-22] MEDS ORDERED: MIDAZOLAM 2 MG/2 ML VIAL IVP ONE (07:16)
[2017-07-22] MEDS ORDERED: MIDAZOLAM 2 MG/2 ML VIAL ONE (07:19)
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
[2017-07-22] MEDS ORDERED: ONDANSETRON 4 MG/2 ML VIAL ONE (07:26)
[2017-07-22] MEDS ORDERED: HYDROmorphONE/DILAUDID 2 MG/ML INJ ONE ×3 (07:26→09:13)
[2017-07-22] MEDS ORDERED: LIDOCAINE 2% 5 ML SDV ONE (07:26)
[2017-07-22] MEDS ORDERED: ROCURONIUM 50 MG/5 ML VIAL ONE (07:26)
[2017-07-22] MEDS ORDERED: PROPOFOL 200 MG/20 ML VIAL ONE ×2 (07:27)
[2017-07-22] MEDS ORDERED: ONDANSETRON 4 MG/2 ML VIAL IVP PRN (08:06)
[2017-07-22] MEDS ORDERED: NALOXONE HCL 0.4 MG/ML INJ IVP PRN (08:06)
[2017-07-22] MEDS ORDERED: PROMETHAZINE HCL 25 MG/ML INJ IVP PRN (08:06)
--- NOTE | 2017-07-22 08:46 | SOAPPROG ---
SOAP Progress Note Assessment/Plan: Post Op Visit: S: Awake and alert. NAD. O: AFVSS/PERRLA/EOMI no droop CN 2-12 grossly intact +lt touch 5/5 BUE/BLE = CDI A/P: 56 yo female that is s/p resection of prominent spinous process above fusion construct -order in place for dc home when criteria met -call with any questions or concerns -pt understands and agrees -follow up in 2 weeks for a post op check -pt has rxs of pain meds already Objective: Vital Signs Temp Pulse Resp BP Pulse Ox 37.0 C 88 16 105/74 96 07/22/17 06:17 07/22/17 07:22 07/22/17 07:22 07/22/17 07:22 07/22/17 07:22 ICD10 Worksheet Patient Problems: Problems Problem Status Onset Pain in thoracic spine Acute H/O spinal fusion Acute Lumbago Acute Lumbar stenosis Acute Mitral valve regurgitation Acute - ICD10 Problem Qualifiers (1) Pain in thoracic spine
--- NOTE | 2017-07-22 09:04 | POSTANESTH ---
Post Anesthetic Evaluation Cardiovascular Status: Normal, Stable Respiratory Status: Normal, Stable Level of Consciousness/Mental Status: Can Participate in Eval Pain Control: Adequate, Prn Tx Ordered Nausea/Vomiting Control: Adequate, Prn Tx Ordered Complications Possibly Related to Anesthesia: None Noted
[2017-07-22] MEDS: HYDROmorphONE/DILAUDID 2 MG/ML INJ IVP PRN ×4 (09:16→10:21)
--- NOTE | 2017-07-22 10:05 | GOP ---
[f rep st] OPERATIVE REPORT DATE OF OPERATION: 07/22/2017 SURGEON: Tevin Esparza MD NEUROSURGEON: Nelson Esparza MD. LONGWALL SHEARER OPERATOR: Gerber Madison PA-C. PREOPERATIVE DIAGNOSIS: Painful thoracic spinous process. POSTOPERATIVE DIAGNOSIS: Painful thoracic spinous process. PROCEDURE PERFORMED: Removal, posterior thoracic spinous process, at the rostral portion of her thor acolumbar fusion. FINDINGS: ESTIMATED BLOOD LOSS: 10 cc. INDICATIONS: The patient is a 56-year-old who has undergone the extension of a thoracolumbar fusion up into the midthoracic spine who, postoperatively, has done relatively well with some resolution of her preoperative severe thoracic back pain, but she developed a new pain associated with a very promi nent bump at the rostral portion of her thoracic hardware. There was a non-mobile large midline bony prominence that was related to and was her upper thoracic spinous process at the rostral portion of her construct. We tried several conservative means and gave this time for it to resolve, but the cece n was getting worse and worse and worse. It represented an upper thoracic pain trigger, and she had bumped into it into a wall and had just excruciating and unbearable pain. She wanted to have it aliza citlali. She knew there was a risk of infection, as well as a risk that she may develop another prominen ce at the next thoracic spinous process above this, but thought it was reasonable to remove it becaus e it was so painful. There was no plan to explore the spinal fusion, there was no evidence of hardwa re loosening or complication from her fusion, and our intent was simply to remove this prominent thor acic spinous process. The risk of positional neuropathy was discussed, and neuromonitoring was used to help minimize this risk in her arms. She did have a history of Marfan syndrome. DESCRIPTION OF PROCEDURE: Patient was taken to the operating room, placed in the supine position. G eneral anesthesia was begun. She was flipped prone onto the Suhail frame. Care was taken to pad all points of contact. A localizing x-ray was taken above the midline prominent thoracic spinous proces s at the rostral portion of her construct. We anesthetized the paraspinal tissues with 0.25% Marcain e with epinephrine and made a midline incision. It was about 2 cm in length. The subcutaneous tissu e was dissected using Bovie cautery down to the fascia, and a subperiosteal dissection was made down the spinous process down to the lamina, and it was not mobile. The spinous process was still anchore d to the lamina. We simply took a Leksell rongeur and removed this until it was flush with the malachi a itself. The spinous process just above this, there was a small sesamoid piece of bone attached to the non-mobile spinous process that we had just removed, and we removed this additional floating piec e of bone related to the next spinous process upwards. Spinous process itself, the next prominence, was located in normal tissue, and we did not disrupt this, and it was not associated with her pain ge nerator itself. We irrigated with antibiotic saline solution and then closed the incision in multipl e layers using Vicryl sutures. A running PDS was placed in the skin itself. There were no complicat ions. COMPLICATIONS: None. /[id number]/MODL
[2017-07-22] MEDS ORDERED: oxyCODONE IR 5 MG TAB ONE (10:24)
[2017-07-22] MEDS ORDERED: oxyCODONE IR 5 MG TAB PO ONE (10:30)
[2017-07-22 11:47] VITALS: BP 91/69
== END 2017-07-22 11:48 | disposition home or self-care (01) ==
LOC: FSGY 05:44
PROVIDERS: ATTEND Neurological Surgery
PROC: BR171ZZ Fluoroscopy of Thoracic Spine using Low Osmolar Contrast (ICD-10-PCS; principal; 2017-07-22 07:30)
PROC: 0PB40ZZ Excision of Thoracic Vertebra, Open Approach (ICD-10-PCS; principal; 2017-07-22 07:30)
DX: M53.84 Other specified dorsopathies, thoracic region (principal); M54.6 Pain in thoracic spine; M41.26 Other idiopathic scoliosis, lumbar region; Q87.0 Congenital malformation syndromes predominantly affecting facial appearance; E27.40 Unspecified adrenocortical insufficiency; G47.33 Obstructive sleep apnea (adult) (pediatric); Z98.1 Arthrodesis status; Z95.2 Presence of prosthetic heart valve
CPT/HCPCS: J0171; J0690; J1030; J1170; J2250; J2405; J2704

== ENCOUNTER → 2017-09-02 | Outpatient (CLI) | payer OTHER | LOC: BHFA 13:00 | PROVIDERS: ATTEND Internal Medicine Cardiovascular Disease | DX: I71.2 Thoracic aortic aneurysm, without rupture (principal) | CPT/HCPCS: 78452; 93017; A9500; J2785 ==

== ENCOUNTER → 2017-09-10 | Outpatient (CLI) | payer OTHER | LOC: BHLMT 11:30 | PROVIDERS: ATTEND Internal Medicine Cardiovascular Disease | DX: Q87.40 Marfan syndrome, unspecified (principal) | CPT/HCPCS: 93306-PO ==

== ENCOUNTER 2017-09-11 14:33 | Day surgery (SDC) | payer OTHER ==
[2017-09-11] MEDS ORDERED: LIDOCAINE 1% 2 ML INJ ID PRN (14:42)
[2017-09-11] MEDS ORDERED: LR 1,000 ML IV ONE (14:42)
[2017-09-11] MEDS ORDERED: BUPIVACAINE/EPI 0.5% 30 ML SDV ONE (16:04)
--- NOTE | 2017-09-11 16:11 | PDANEPAE ---
ANE History of Present Illness anal fistula ANE Past Medical History - Cardiovascular History Hx Hypertension: No Hx Arrhythmias: Yes Hx Chest Pain: No Hx Coronary Artery / Peripheral Vascular Disease: No Hx CHF / Valvular Disease: Yes Hx Palpitations: No Cardiovascular History Comment: ANGIOPLASTY RING BASE MITRAL VALVE. MITRAL VALVE "EXPLODED" 02/2014, SURG 04/2014 R/T MARFANS. HX MURMUR. HYPOTENSION. sees Dr. Clay at [facility] - Pulmonary History Hx COPD: No Hx Asthma/Reactive Airway Disease: No Hx Recent Upper Respiratory Infection: No Hx Oxygen in Use at Home: Yes Hx Sleep Apnea: No Sleep Apnea Screening Result - Last Documented: Positive Pulmonary History Comment: CENTRAL SLEEP APNEA DX 07/2014 TRIED USING V-PAP UNABLE TO SO USES HS. HYPOXIA WHEN LAYING DOWN THEN USES OXYGEN. asthma hx, resolved since moving to [place] 2007. spont pneuothorax w [facility] 01/26- wn. pneumonia x1. pulmonogist is at [facility] - Neurologic History Hx Cerebrovascular Accident: No Hx Seizures: No Hx Dementia: No Neurologic History Comment: hx migraines. seizure reaction w fentanyl. hx of spinal fusion. 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 hypothyroidism. hyperparathyroid. adrenal insuff. r/t budesonide - Renal History Hx Renal Disorders: No - Liver History Hx Hepatic Disorders: No Hepatic History Comment: metabolism shut down 2007- ms high doses w spinal pain / surg- damaged uptake of insulin - Neurological & Psychiatric Hx Hx Neurological and Psychiatric Disorders: No Neurological / Psychiatric History Comment: HX DEPRESSION, NO PROBLEMS CURRENTLY - Cancer History Hx Cancer: No - Congenital Disorder History Hx Congenital Disorders: Yes Congenital History Comment: MARFANS SYNDROME - GI History Hx Gastrointestinal Disorders: Yes Gastrointestinal History Comment: lymphocytic micro colitis. DIARRHEA. SIBO. acalosia - Other Health History Other Health History: bruise easily. missing teeth. hates to wear her hearing aides. ARTHRITIS - Chronic Pain History Chronic Pain: Yes (BACK, NECK) - Surgical History Prior Surgeries: 07/22/17 resection of thoracic spinous process with Isaias. t12-l4 removal of hardware, t8-l2 fusion with Isaias. pain injection with [place] 11/14/15. L1/L2 T12/L1 TLIF 03/21/2015. OPEN HEART 04/2014. PREV SPINE SURG X6. bilateral knees. plate in right forearm. plate in L wrist. tubal ligation ANE Review of Systems Review of systems is: negative Review of Systems: - Exercise capacity METS (RN): 4 METS ANE Patient History - Allergies Allergies/Adverse Reactions: ciprofloxacin Allergy (Severe, Verified 09/11/17 14:52) N/V/D, dehydration, GI dysfunction fentanyl [From Duragesic] Allergy (Severe, Verified 07/06/17 12:36) seizures codeine [Codeine] Allergy (Intermediate, Verified 07/06/17 12:36) flu like symptoms,nausea prednisone Allergy (Intermediate, Verified 07/06/17 12:36) martell face hydrocortisone Allergy (Verified 07/06/17 12:36) nisentil Allergy (Severe, Uncoded 07/06/17 12:36) anaphalytic oral antibiotics Allergy (Uncoded 09/11/17 14:52) - Home Medications Home medications: home medication list seen and reviewed Home Medications: Metformin HCl [Metformin 1000 mg] 1,000 mg 03/19/13 [Last Taken 09/09/17 08:00] Methocarbamol [Robaxin 750 mg (*)] 750 mg 03/19/13 [Last Taken 09/11/17 07:30] Budesonide [Budesonide EC] 9 mg 05/01/14 [Last Taken 09/11/17 07:30] Cyanocobalamin [Vitamin B12 1000MCG/ML (*)] 1,000 mg 05/01/14 [Last Taken 14:25] Estradiol/Norethindrone Acet [Activella 1 mg-0.5 mg Tablet] 1 tab 05/01/14 [ Last Taken 09/10/17 16:30] Rizatriptan Benzoate [Maxalt Home Paraprofessional] 10 mg 05/01/14 [Last Taken 06/22/17] medroxyPROGESTERone ACETATE [Provera] 5 mg 05/01/14 [Last Taken 09/10/17 16:30] HYDROmorphone HCL [Dilaudid] 8 mg 03/14/15 [Last Taken 07/17/17] Cyclobenzaprine [Flexeril 10 MG (*)] 10 mg 04/23/16 [Last Taken 09/10/17 16:30] Gabapentin [Neurontin 300 MG (*)] 1,200 mg 07/14/15 [Last Taken 09/10/17 21:50] QUEtiapine FUMARATE [Seroquel 50 mg (*)] 50 mg 11/08/15 [Last Taken 09/10/17 23: 30] Suvorexant [Belsomra] 15 mg 11/08/15 [Last Taken 09/10/17 23:30] traZODone [traZODONE 100MG (*)] 100 mg 11/08/15 [Last Taken 09/10/17 23:30] Diazepam [Valium 10 MG (*)] 10 mg 10/06/16 [Last Taken 09/10/17 23:30] Levothyroxine [Synthroid 88 mcg (*)] 88 mcg 10/06/16 [Last Taken 09/11/17 07:30] oxyCODONE HCL [Oxycontin] 80 mg 07/04/17 [Last Taken 09/11/17 07:30] oxyCODONE IR [Oxycodone Ir (*)] 15 mg 07/06/17 [Last Taken 09/11/17 11:00] - NPO status NPO Since - Liquids (Date): 09/11/17 NPO Since - Liquids (Time): 11:00 NPO Since - Solids (Date): 09/11/17 NPO Since - Solids (Time): 07:45 - Anes Hx Anes Hx: no prior problems - Smoking Hx Smoking Status: Former smoker - Family Anes Hx Family Hx Anesthesia Complications: none ANE Labs/Vital Signs - Vital Signs Blood Pressure: 104/79 Heart Rate: 85 Respiratory Rate: 14 O2 Sat (%): 96 Height: 182.88 cm Weight: 68.039 kg ANE Physical Exam - Airway Neck exam: FROM Mallampati Score: Class 1 Mouth exam: normal dental/mouth exam - Pulmonary Pulmonary: no respiratory distress - Cardiovascular Cardiovascular: regular rate and rhythym - ASA Status ASA Status: III ANE Anesthesia Plan Anesthesia Plan: general endotracheal anesthesia
[2017-09-11] MEDS ORDERED: MIDAZOLAM 2 MG/2 ML VIAL IVP ONE (16:13)
[2017-09-11] MEDS ORDERED: HYDROmorphONE/DILAUDID 1 MG/ML INJ IVP PRN ×2 (16:20→17:26)
[2017-09-11] MEDS ORDERED: HYDROmorphONE/DILAUDID 1 MG/ML INJ ONE (16:32)
[2017-09-11] MEDS ORDERED: HYDROGEN PEROXIDE 236 ML BOTTLE TP ONE (16:57)
[2017-09-11] MEDS ORDERED: PROPOFOL 200 MG/20 ML VIAL ONE (16:59)
[2017-09-11] MEDS ORDERED: HYDROmorphONE/DILAUDID 2 MG/ML INJ ONE (16:59)
[2017-09-11] MEDS ORDERED: LIDOCAINE 2% JELLY 5 ML TUBE ONE (17:00)
[2017-09-11] MEDS ORDERED: LIDOCAINE 2% 5 ML SDV ONE ×2 (17:00→17:48)
[2017-09-11] MEDS ORDERED: ONDANSETRON 4 MG/2 ML VIAL IVP PRN (17:26)
[2017-09-11] MEDS ORDERED: PROMETHAZINE HCL 25 MG/ML INJ IVP PRN (17:26)
[2017-09-11] MEDS ORDERED: LR 500 ML IV PRN (17:26)
[2017-09-11] MEDS ORDERED: MEPERIDINE 25 MG/0.5 ML AMP IVP PRN (17:26)
[2017-09-11] MEDS ORDERED: NALOXONE HCL 0.4 MG/ML INJ IVP PRN (17:26)
[2017-09-11] MEDS ORDERED: ACETAMINOPHEN 500 MG TAB PO PRN (17:26)
[2017-09-11] MEDS ORDERED: oxyCODONE IR 5 MG TAB PO PRN ×2 (17:26→19:03)
--- NOTE | 2017-09-11 18:42 | POSTANESTH ---
Post Anesthetic Evaluation Cardiovascular Status: Normal, Stable, Similar to Pre-Op Cond Respiratory Status: Normal, Stable, Similar to Pre-op Cond. Level of Consciousness/Mental Status: Can Participate in Eval, Mildly Sleepy, Arousable Pain Control: Adequate, Prn Tx Ordered Nausea/Vomiting Control: Adequate, Prn Tx Ordered Complications Possibly Related to Anesthesia: None Noted
--- NOTE | 2017-09-11 19:03 | POSTOPPROG ---
Post Op Note Date of Operation: 09/11/17 Surgeon: Bao Morfin Senior Gl Accountant: none Anesthesiologist: Julita Anesthesia: LMA Pre-op Diagnosis: Anal fistula Post-op Diagnosis: Transphincteric fistula Procedure: repair fistula Findings: as above Inf/Abcess present in the surg proc area at time of surgery?: Yes Depth: Deep Incisional (Fascial) EBL: Minimal Specimen(s): none
[2017-09-11 20:20] VITALS: BP 126/96
== END 2017-09-11 20:21 | disposition home or self-care (01) ==
LOC: FSGY 14:33
PROVIDERS: ATTEND Surgery
PROC: 0DQQ0ZZ Repair Anus, Open Approach (ICD-10-PCS; principal; 2017-09-11 16:00)
DX: K60.3 Anal fistula (principal); E03.9 Hypothyroidism, unspecified; Q87.43 Marfan syndrome with skeletal manifestation; M48.02 Spinal stenosis, cervical region; E27.40 Unspecified adrenocortical insufficiency; Z95.2 Presence of prosthetic heart valve; Z98.1 Arthrodesis status
CPT/HCPCS: C1763; J1170; J2250; J2704

== ENCOUNTER → 2018-03-27 | Outpatient (CLI) | payer OTHER | LOC: FIMAGING 12:47 | PROVIDERS: ATTEND Nurse Practitioner | DX: Z98.1 Arthrodesis status (principal); T85.698A Other mechanical complication of other specified internal prosthetic devices, implants and grafts, initial encounter ==

== ENCOUNTER → 2018-04-09 | Outpatient (CLI) | payer OTHER ==
[~2018-04-09] MED LIST changes: -AVITENE POWDER 1 GM JAR TP ONE; -BACITRACIN 50,000 UNITS/10 ML SYR IRR ONE; -BUPIVACAINE/EPI 0.25% 30 ML SDV ONE; -CHLORHEXIDINE GLUC HIBICLENS 118 ML BTL TP ONE; +GADOBUTROL 10 ML VIAL IVP ONE; -THROMBIN (BOVINE) 5,000 UNIT VIAL TP ONE; -VANCOMYCIN 1 GM VIAL ONE; -ceFAZolin 2 GM/DEXTROSE 100 ML IV ONE
== END ==
LOC: FIMAGING 12:33
PROVIDERS: ATTEND Surgery
DX: K60.5 Anorectal fistula (principal)
CPT/HCPCS: 72197; A9585

== ENCOUNTER 2018-04-22 11:31 | Day surgery (SDC) | payer OTHER ==
[2018-04-22] MEDS ORDERED: MIDAZOLAM 2 MG/2 ML VIAL IVP ONE (13:13)
--- NOTE | 2018-04-22 13:13 | PDANEPAE ---
ANE History of Present Illness EUA, I&D anorectal fistula ANE Past Medical History - Cardiovascular History Hx Hypertension: No Hx Arrhythmias: Yes Hx Chest Pain: No Hx Coronary Artery / Peripheral Vascular Disease: No Hx CHF / Valvular Disease: Yes Hx Palpitations: No Cardiovascular History Comment: ANGIOPLASTY RING BASE MITRAL VALVE. MITRAL VALVE "EXPLODED" 02/2014, SURG 04/2014 R/T MARFANS. HX MURMUR. HYPOTENSION. sees Dr. Clay at [facility] - Pulmonary History Hx COPD: No Hx Asthma/Reactive Airway Disease: No Hx Recent Upper Respiratory Infection: No Hx Oxygen in Use at Home: Yes O2 in Use at Home (L/minute): 4lpm when supine Hx Sleep Apnea: No Sleep Apnea Screening Result - Last Documented: Negative Pulmonary History Comment: CENTRAL SLEEP APNEA DX 07/2014 TRIED USING V-PAP UNABLE TO SO USES HS. HYPOXIA WHEN LAYING DOWN THEN USES OXYGEN. asthma hx, resolved since moving to [place] 2007. spont pneuothorax w [facility] 01/26- wn. pneumonia x1. pulmonogist is at [facility] - Neurologic History Hx Cerebrovascular Accident: No Hx Seizures: No Hx Dementia: No Neurologic History Comment: hx migraines. seizure reaction w fentanyl. hx of spinal fusion. 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 hypothyroidism. hyperparathyroid. adrenal insuff. r/t budesonide - Renal History Hx Renal Disorders: No - Liver History Hx Hepatic Disorders: No Hepatic History Comment: metabolism shut down 2005- high dose of morphine caused damaged uptake of insulin. Metabolic - Neurological & Psychiatric Hx Hx Neurological and Psychiatric Disorders: Yes Neurological / Psychiatric History Comment: HX DEPRESSION, NO PROBLEMS CURRENTLY - Cancer History Hx Cancer: No - Congenital Disorder History Hx Congenital Disorders: Yes Congenital History Comment: MARFANS SYNDROME - GI History Hx Gastrointestinal Disorders: Yes Gastrointestinal History Comment: lymphocytic micro colitis. DIARRHEA. SIBO. acalosia - Other Health History Other Health History: bruise easily. missing teeth. hates to wear her hearing aides. ARTHRITIS - Chronic Pain History Chronic Pain: Yes (BACK, NECK) - Surgical History Prior Surgeries: 07/22/17 resection of thoracic spinous process with Isaias. t12-l4 removal of hardware, t8-l2 fusion with Isaias. pain injection with [place] 11/14/15. L1/L2 T12/L1 TLIF 03/21/2015. OPEN HEART 04/2014 mitral valve replaced. PREV SPINE SURG X6. bilateral knees. plate in right forearm. plate in L wrist. tubal ligation ANE Review of Systems Review of systems is: negative Review of Systems: - Exercise capacity METS (RN): 4 METS ANE Patient History - Allergies Allergies/Adverse Reactions: ciprofloxacin Allergy (Severe, Verified 09/11/17 14:52) N/V/D, dehydration, GI dysfunction fentanyl [From Duragesic] Allergy (Severe, Verified 07/06/17 12:36) seizures codeine [Codeine] Allergy (Intermediate, Verified 07/06/17 12:36) flu like symptoms,nausea prednisone Allergy (Intermediate, Verified 07/06/17 12:36) martell face hydrocortisone Allergy (Verified 07/06/17 12:36) nisentil Allergy (Severe, Uncoded 07/06/17 12:36) anaphalytic oral antibiotics Allergy (Uncoded 09/11/17 14:52) - Home Medications Home medications: home medication list seen and reviewed Home Medications: Metformin HCl [Metformin 1000 mg] 1,000 mg 03/19/13 [Last Taken 09/09/17 08:00] Methocarbamol [Robaxin 750 mg (*)] 750 mg 03/19/13 [Last Taken 09/11/17 07:30] Budesonide [Budesonide EC] 9 mg 05/01/14 [Last Taken 09/11/17 07:30] Cyanocobalamin [Vitamin B12 1000MCG/ML (*)] 1,000 mg 05/01/14 [Last Taken 14:25] Estradiol/Norethindrone Acet [Activella 1 mg-0.5 mg Tablet] 1 tab 05/01/14 [ Last Taken 09/10/17 16:30] Rizatriptan Benzoate [Maxalt Packer Denture] 10 mg 05/01/14 [Last Taken 06/22/17] medroxyPROGESTERone ACETATE [Provera] 5 mg 05/01/14 [Last Taken 09/10/17 16:30] HYDROmorphone HCL [Dilaudid] 8 mg 03/14/15 [Last Taken 07/17/17] Cyclobenzaprine [Flexeril 10 MG (*)] 10 mg 07/14/15 [Last Taken 09/10/17 16:30] Gabapentin [Neurontin 300 MG (*)] 1,200 mg 07/14/15 [Last Taken 09/10/17 21:50] QUEtiapine FUMARATE [Seroquel 50 mg (*)] 50 mg 11/08/15 [Last Taken 09/10/17 23: 30] Suvorexant [Belsomra] 15 mg 11/08/15 [Last Taken 09/10/17 23:30] traZODone [traZODONE 100MG (*)] 100 mg 11/08/15 [Last Taken 09/10/17 23:30] Diazepam [Valium 10 MG (*)] 10 mg 10/06/16 [Last Taken 09/10/17 23:30] Levothyroxine [Synthroid 88 mcg (*)] 88 mcg 10/06/16 [Last Taken 09/11/17 07:30] oxyCODONE HCL [Oxycontin] 80 mg 07/04/17 [Last Taken 09/11/17 07:30] oxyCODONE IR [Oxycodone Ir (*)] 15 mg 07/06/17 [Last Taken 09/11/17 11:00] - NPO status NPO Status: no food or drink >8 hours - Anes Hx Anes Hx: no prior problems - Smoking Hx Smoking Status: Current some day smoker - Family Anes Hx Family Anes Hx: none Family Hx Anesthesia Complications: none ANE Labs/Vital Signs - Vital Signs Vital Signs: reviewed preoperatively; see RN documention for details Height: 182.88 cm Weight: 58.06 kg ANE Physical Exam - Airway Neck exam: decreased ROM Mallampati Score: Class 1 Mouth exam: normal dental/mouth exam - Pulmonary Pulmonary: no respiratory distress - Cardiovascular Cardiovascular: regular rate and rhythym - ASA Status ASA Status: III ANE Anesthesia Plan Anesthesia Plan: GA w LMA
[2018-04-22] MEDS ORDERED: ERTAPENEM 1 GM in NS 100 ML IV ONE (13:20)
[2018-04-22] MEDS ORDERED: PROPOFOL 200 MG/20 ML VIAL ONE (13:38)
[2018-04-22] MEDS ORDERED: ONDANSETRON 4 MG/2 ML VIAL ONE (13:38)
[2018-04-22] MEDS ORDERED: LIDOCAINE 2% 100 MG/5 ML SYR ONE (13:38)
[2018-04-22] MEDS ORDERED: DEXAMETHASONE 4 MG/ML VIAL ONE (13:38)
[2018-04-22] MEDS ORDERED: ePHEDrine SULFATE 25 MG/5 ML SYR ONE (14:19)
[2018-04-22] MEDS ORDERED: HYDROmorphONE/DILAUDID 2 MG/ML INJ IVP PRN (14:27)
[2018-04-22] MEDS ORDERED: NALOXONE HCL 0.4 MG/ML INJ IVP PRN (14:27)
[2018-04-22] MEDS ORDERED: oxyCODONE IR 5 MG TAB PO PRN (14:27)
[2018-04-22] MEDS ORDERED: PROMETHAZINE HCL 25 MG/ML INJ IVP PRN (14:27)
[2018-04-22] MEDS ORDERED: HYDROCODONE/APAP 5/325 TAB PO PRN (14:27)
[2018-04-22] MEDS ORDERED: DIAZEPAM 5 MG/ML 1 ML SYR IVP PRN (14:27)
--- NOTE | 2018-04-22 14:29 | POSTANESTH ---
Post Anesthetic Evaluation Cardiovascular Status: Similar to Pre-Op Cond Respiratory Status: Similar to Pre-op Cond. Level of Consciousness/Mental Status: Can Participate in Eval, Mildly Sleepy, Arousable Pain Control: Adequate, Prn Tx Ordered Nausea/Vomiting Control: Adequate, Prn Tx Ordered Complications Possibly Related to Anesthesia: None Noted
[2018-04-22 14:48] VITALS: BP 87/49
--- NOTE | 2018-04-22 15:01 | POSTOPPROG ---
Post Op Note Date of Operation: 04/22/18 Surgeon: Bao Morfin Forgesmith: sarah Anesthesiologist: Jp Anesthesia: LMA Pre-op Diagnosis: Fistula en ano Post-op Diagnosis: same Procedure: EUA/seton placement Findings: Left lateral/posterior fistula Inf/Abcess present in the surg proc area at time of surgery?: Yes Depth: Deep Incisional (Fascial) EBL: Minimal Drains: Other (SETON)
--- NOTE | 2018-04-22 15:31 | GOP ---
[f rep st] OPERATIVE REPORT DATE OF OPERATION: SURGEON: Bao Morfin MD ANESTHESIA: General LMA anesthesia was used. ANESTHESIOLOGIST: Dr. Trammell. PREOPERATIVE DIAGNOSIS: [id number]. POSTOPERATIVE DIAGNOSIS: [id number]. PROCEDURE PERFORMED: Exam under anesthesia with seton placement. FINDINGS: Easily accessible tract from the perineum to the left lateral rectal wall with purulence n oted inside and outside of that fistula tract. INDICATIONS: 57-year-old patient presents with [id number] recurrent after previous advancement f lap procedure in [place]. DESCRIPTION OF PROCEDURE: The patient was brought into the operating room. After an induction of se dation, her perineum was prepped with Betadine. She was placed in lithotomy for exam. A time-out pr ocedure was performed according to institutional standards. Local anesthetic was infused in skin and subcutaneous tissues around the external fistula opening site. This area was widened with blunt dissection and irrigated and aspirated. After purulence is removed, the Avi-Candida retractor was introduced into the anus and inspection of the rectum was performed. There was an area that is inflamed at the inferior left portion of the rectal wall approximately 4 cm in. The lacrimal duct probe is used to probe gently to define the fistula tract. A mini loop is then passed from the internal part of the fistula through to the external opening and secured with 3- 0 Vicryl ties. After insuring good placement and not in cutting fashion since the fistula was not to be opened at this time, the seton was trimmed appropriately and left in place. On further examination, it appears that the fistula tract does go through the sphincter muscles. A f urther MRI will likely be needed to determine the location of the sphincters in relation to the seton . The patient is awakened, extubated, and taken to recovery room in stable condition. COUNT: Needle, instrument, and sponge counts verified to be correct. COMPLICATIONS: No immediate complications. /[id number]/MODL
== END 2018-04-22 16:05 | disposition home or self-care (01) ==
LOC: FSGY 11:31
PROVIDERS: ATTEND Surgery
DX: K60.5 Anorectal fistula (principal); E03.9 Hypothyroidism, unspecified; I34.9 Nonrheumatic mitral valve disorder, unspecified; F41.9 Anxiety disorder, unspecified; E27.9 Disorder of adrenal gland, unspecified; F17.200 Nicotine dependence, unspecified, uncomplicated; D50.9 Iron deficiency anemia, unspecified; E11.9 Type 2 diabetes mellitus without complications; Q87.418 Marfan syndrome with other cardiovascular manifestations; I25.2 Old myocardial infarction; J45.909 Unspecified asthma, uncomplicated; G47.419 Narcolepsy without cataplexy; G47.31 Primary central sleep apnea; Z79.82 Long term (current) use of aspirin; Z95.4 Presence of other heart-valve replacement; Z98.1 Arthrodesis status
CPT/HCPCS: J1100; J1335; J2001; J2405; J2704

== ENCOUNTER 2018-06-03 21:49 | Inpatient (IN) | payer OTHER ==
--- NOTE | 2018-06-03 22:16 | EDPHY ---
H & P Stated Complaint: BACK PAIN AFTER TWISTING Time Seen by Provider: 06/03/18 22:16 HPI/ROS: HPI CHIEF COMPLAINT: Back pain, fever HISTORY OF PRESENT ILLNESS: This patient 57 old female, she has multiple chronic medical problems, including Marfan syndrome, adrenal insufficiency, rectal fistula, chronic pain, extensive hardware in her back, presents to the emergency with back pain, she reports she was reaching for the phone that was ringing and "tweaked" her back. She states that she developed pain all over body and back. She arrives to the emergency room is noted to be febrile, and tachycardic. Denies really any infectious symptoms, denies cough, denies urinary symptoms. Has been dealing with a perirectal fistula. Past Medical History: Significant past menstrual for adrenal insufficiency , attention, chronic pain on opioid, Marfan syndrome, colitis Past Surgical History: Rectal fistula. Multiple back surgeries including fusion. Social History: No drugs alcohol to go home. Family History: Noncontributory ROS REVIEW OF SYSTEMS: 10 Systems were reviewed and negative with the exception of the elements mentioned in the history of present illness. Exam Constitutional triage nursing summary reviewed, vital signs reviewed, awake/ alert. Signs noted at triage to tachycardic heart rate 135 temperature 39 degrees. Eyes normal conjunctivae and sclera, EOMI, PERRLA. HENT normal inspection, atraumatic, moist mucus membranes, no epistaxis, neck supple/ no meningismus, no raccoon eyes. Respiratory clear to auscultation bilaterally, normal breath sounds, no respiratory distress, no wheezing. Cardiovascular rate normal, regular rhythm, no murmur, no edema, distal pulses normal. Gastrointestinal Rectal exam: No large abscess appreciated, there is a loop sticking out of her rectal region that goes through the perirectal region, soft , non-tender, no rebound, no guarding, normal bowel sounds, no distension, no pulsatile mass. Genitourinary no CVA tenderness. Musculoskeletal back exam clean incisions, no midline vertebral tenderness, full range of motion, no calf swelling, no tenderness of extremities, no meningismus, good pulses, neurovascularly intact. Skin pink, warm, & dry, no rash, skin atraumatic. Neurologic awake, alert and oriented x 3, AAOx3, moves all 4 extremities equally, motor intact, sensory intact, CN II-XII intact, normal cerebellar, normal vision, normal speech. Psychiatric normal mood/affect. Heme/Lymph/Immune no lymphadenopathy. Differential Diagnosis: Includes limited to in a particular order sepsis, bacteremia, acute febrile illness, pneumonia, UTI, colitis abscess Medical Decision Making: Plan for this patient IV establishment IV fluid bolus , basic lab work, lactic acid, blood cultures, IV antibiotics, most likely needs to be admitted to the hospital. She does have a history of adrenal insufficiency, may need to give stress dose steroids. Re-evaluation: CT scan abdomen pelvis with IV contrast shows no evidence of large abscess or significant fluid collection. Called to me by Dr. Astorga. Given this patient has a fever and tachycardia plan for broad-spectrum antibiotics, IV vancomycin IV Zosyn. I spoke with Infectious Disease Dr. Rodriges at 11:40 p.m.. I also spoke with Dr. Fontana Agrees to admit. SDU for Fever, tachycardia. Spoke with Dr. Morfin, Will see her in [place]. Dr. Morfin states he place 2 sutures in the perirectal region. But no significant manipulation today. Patient has no red flags on exam. No leg weakness, no signs of saddle anesthesia or cauda equina. She is febrile with back pain and pain all over. Concerning for bacteremia or sepsis. Patient be admitted to the hospital for further evaluation observation. Source: Patient - Personal History Current Tetanus Diphtheria and Acellular Pertussis (TDAP): Yes - Medical/Surgical History Hx Asthma: No Hx Chronic Respiratory Disease: Yes Hx Diabetes: Yes Hx Cardiac Disease: No Hx Renal Disease: No Hx Cirrhosis: Yes Hx Alcoholism: No Hx HIV/AIDS: No Hx Splenectomy or Spleen Trauma: No Other PMH: spinal fusion c3 - c7 T8- s1, marfans, mitral valve reconstruction,. ortho surgery. Adrenal insuff, chronic pain, altoclasic 3,. aspirartion, positional hypoxia must be on right side, lymphositic microcolitis - Social History Smoking Status: Current some day smoker Constitutional: Initial Vital Signs Temperature (C) 39.0 C H 06/03/18 21:57 Heart Rate 135 H 06/03/18 21:57 Respiratory Rate 18 06/03/18 21:57 Blood Pressure 140/82 H 06/03/18 21:57 O2 Sat (%) 96 06/03/18 21:57 O2 Delivery Mode Room Air Allergies/Adverse Reactions: ciprofloxacin Allergy (Severe, Verified 09/11/17 14:52) N/V/D, dehydration, GI dysfunction fentanyl [From Duragesic] Allergy (Severe, Verified 07/06/17 12:36) seizures codeine [Codeine] Allergy (Intermediate, Verified 07/06/17 12:36) flu like symptoms,nausea prednisone Allergy (Intermediate, Verified 07/06/17 12:36) martell face hydrocortisone Allergy (Verified 07/06/17 12:36) nisentil Allergy (Severe, Uncoded 07/06/17 12:36) anaphalytic ALL FLUOROQUINOLONES Allergy (Uncoded 06/03/18 21:53) FLU VACCINE Allergy (Uncoded 06/03/18 21:53) oral antibiotics Allergy (Uncoded 09/11/17 14:52) Home Medications: Medication Instructions Recorded Metformin HCl [Metformin 1000 mg] 1,000 mg PO BIDMEAL 03/19/13 Budesonide [Budesonide EC] 9 mg PO DAILY 05/01/14 Cyanocobalamin [Vitamin B12 1,000 mg IM Q30D 05/01/14 1000MCG/ML (*)] Rizatriptan Benzoate [Maxalt Receiving Weigher] 10 mg PO DAILY PRN 05/01/14 medroxyPROGESTERone ACETATE 5 mg PO HS 05/01/14 [Provera] HYDROmorphone HCL [Dilaudid] 8 mg PO Q6HRS PRN 03/14/15 Cyclobenzaprine [Flexeril 10 MG 10 mg PO BID PRN 07/14/15 (*)] Gabapentin [Neurontin 300 MG (*)] 600 mg PO HS 07/14/15 QUEtiapine FUMARATE [Seroquel 50 50 mg PO HS 11/08/15 mg (*)] Suvorexant [Belsomra] 15 mg PO HS 11/08/15 traZODone [traZODONE 100MG (*)] 100 mg PO HS 11/08/15 Diazepam [Valium 10 MG (*)] 10 mg PO BID PRN 10/06/16 Levothyroxine [Synthroid 88 mcg 88 mcg PO DAILY06 10/06/16 (*)] oxyCODONE IR [Oxycodone Ir (*)] 15 mg PO Q6HRS PRN 07/06/17 oxyCODONE HCL [Oxycontin] 80 mg PO BID@04/23/18 Aspirin [Aspirin 325 mg (*)] 325 mg PO DAILY 06/04/18 Budesonide [Budesonide EC] 3 mg PO DAILY@15 06/04/18 Estradiol/Norethindrone Acet 1 each PO HS 06/04/18 [Lopreeza 1 mg-0.5 mg Tablet] Medical Decision Making - Data Points Laboratory Results: Laboratory Results 06/03/18 22:20 06/03/18 22:20 Microbiology Results: MICROBIOLOGY 06/03/18 22:32 Nasal, Sinus - Swab Respiratory Panel (PCR) - Final No Organism Detected By Pcr Medications Given: Acetaminophen/Aspirin/Caffeine (Excedrin Tablet) 1 each PO Q6HRS PRN PRN Reason: Headache Stop: 12/01/18 04:54 Last Admin: 06/04/18 05:06 Dose: 1 each Budesonide (Entocort Ec) 9 mg PO DAILY [facility] Stop: 12/01/18 11:14 Last Admin: 06/04/18 11:36 Dose: 9 mg Budesonide (Entocort Ec) 3 mg PO DAILY@ [facility] Stop: 12/01/18 14:59 Last Admin: 06/04/18 14:49 Dose: Not Given Diazepam (Valium) 10 mg PO BID PRN PRN Reason: spasms with nap time Stop: 12/01/18 14:44 Last Admin: 06/04/18 14:48 Dose: 10 mg Gabapentin (Neurontin) 600 mg PO HS [facility] Stop: 12/01/18 20:59 Last Admin: 06/04/18 22:21 Dose: 600 mg Hydromorphone HCl (Dilaudid) 1 mg IVP Q4HRS PRN PRN Reason: Breakthrough pain Stop: 06/14/18 02:16 Last Admin: 06/04/18 19:50 Dose: 1 mg Piperacillin/Tazobactam/Dextrose (Zosyn 3.375 Gm (Premix)) 50 mls @ 100 mls/hr IV Q6HRS TU PRN Reason: Protocol Stop: 07/04/18 05:59 Last Admin: 06/05/18 02:47 Dose: 50 mls Vancomycin/Sodium Chloride (Vancomycin 1 Gm (Premix)) 250 mls @ 250 mls/hr IV Q12H [facility] Stop: 07/04/18 11:29 Last Admin: 06/04/18 23:46 Dose: 250 mls Metformin HCl (Glucophage) 1,000 mg PO BIDMEAL [facility] Stop: 12/01/18 17:59 Last Admin: 06/04/18 22:22 Dose: 1,000 mg Miscellaneous Medication (Estradiol/Norethindrone Acet [Lopreeza 1 Mg-0.5 Mg Tablet]) 1 each PO [facility] Stop: 12/01/18 20:59 Last Admin: 06/04/18 22:41 Dose: Not Given Miscellaneous Medication (Suvorexant [Belsomra]) 15 mg PO [facility] Stop: 12/01/18 20:59 Last Admin: 06/04/18 22:41 Dose: Not Given Oxycodone HCl (Oxycontin) 80 mg PO BID@ [facility] Stop: 06/14/18 11:01 Last Admin: 06/04/18 22:22 Dose: 80 mg Quetiapine Fumarate (Seroquel) 50 mg PO [facility] Stop: 12/01/18 20:59 Last Admin: 06/04/18 22:21 Dose: 50 mg Trazodone HCl (Trazodone) 100 mg PO [facility] Stop: 12/01/18 20:59 Last Admin: 06/04/18 22:21 Dose: 100 mg Discontinued Medications Acetaminophen (Tylenol) 1,000 mg PO EDNOW ONE Stop: 06/03/18 22:32 Last Admin: 06/03/18 22:34 Dose: 1,000 mg Hydromorphone HCl (Dilaudid) 1 mg IVP EDNOW ONE Stop: 06/03/18 22:24 Last Admin: 06/03/18 22:32 Dose: 1 mg Hydromorphone HCl (Dilaudid) 1 mg IVP ONCE ONE Stop: 06/04/18 00:58 Last Admin: 06/04/18 01:44 Dose: 1 mg Sodium Chloride (Ns) 1,000 mls @ 0 mls/hr IV EDNOW ONE; Wide Open PRN Reason: Protocol Stop: 06/03/18 22:24 Last Admin: 06/03/18 22:31 Dose: 1,000 mls Sodium Chloride (Ns) 1,000 mls @ 0 mls/hr IV EDNOW ONE; Wide Open PRN Reason: Protocol Stop: 06/03/18 22:24 Last Admin: 06/03/18 22:31 Dose: 1,000 mls Vancomycin/Sodium Chloride (Vancomycin 1 Gm (Premix)) 250 mls @ 250 mls/hr IV EDNOW ONE PRN Reason: Protocol Stop: 06/04/18 00:11 Last Admin: 06/03/18 23:22 Dose: 250 mls Piperacillin/Tazobactam/Dextrose (Zosyn (Premix)) 100 mls @ 200 mls/hr IV EDNOW ONE PRN Reason: Protocol Stop: 06/03/18 23:41 Last Admin: 06/04/18 00:33 Dose: 100 mls Sodium Chloride (Ns) 1,000 mls @ 0 mls/hr IV EDNOW ONE PRN Reason: Wide Open Stop: 06/04/18 00:16 Last Admin: 06/04/18 00:33 Dose: 1,000 mls Ondansetron HCl (Zofran) 4 mg IVP EDNOW ONE Stop: 06/03/18 22:24 Last Admin: 06/03/18 22:32 Dose: 4 mg Sumatriptan Succinate (Imitrex) 100 mg PO ONCE ONE Stop: 06/04/18 15:31 Last Admin: 06/04/18 15:34 Dose: 100 mg Departure - Departure Disposition: [facility] Acute Clinical Impression: Fever Qualifiers: Fever type: due to other condition Qualified Code(s): R50.81 - Fever presenting with conditions classified elsewhere Back pain Qualifiers: Back pain location: back pain in unspecified location Chronicity: chronic Back pain laterality: bilateral Qualified Code(s): M54.9 - Dorsalgia, unspecified; G89.29 - Other chronic pain; G89.29 - Other chronic pain Condition: Fair
[2018-06-03] MEDS ORDERED: ONDANSETRON 4 MG/2 ML VIAL IVP ONE (22:23)
[2018-06-03] MEDS ORDERED: HYDROmorphONE/DILAUDID 2 MG/ML INJ IVP ONE (22:23)
[2018-06-03] MEDS ORDERED: NS 1,000 ML IV ONE ×2 (22:23)
[2018-06-03] MEDS ORDERED: ACETAMINOPHEN 500 MG TAB PO ONE (22:31)
[2018-06-03 22:32] LABS: PLATELET COUNT 287 10^3/uL (150-400)
[2018-06-03 22:47] LABS: INR 1.04 (0.83-1.16); PROTIME(PATIENT) 13.2 SEC (12.0-15.0)
[2018-06-03] MEDS ORDERED: IOPAMIDOL (ISOVUE-300) 100 ML BTL ONE (22:55)
[2018-06-03] MEDS ORDERED: VANCOMYCIN HCL/NORMAL SALINE 250 ML IV ONE (23:12)
[2018-06-03] MEDS ORDERED: PIPERACILLIN/TAZO 4.5 GM/DEX 100 ML IV ONE (23:12)
[2018-06-03] MEDS ORDERED: ACETAMINOPHEN 325 MG TAB PO PRN (23:53)
[2018-06-03] MEDS ORDERED: ONDANSETRON 4 MG/2 ML VIAL IVP PRN (23:53)
[2018-06-03] MEDS ORDERED: ONDANSETRON DISINTEGRATING 4 MG TAB PO PRN (23:53)
[2018-06-04] MEDS ORDERED: NS 1,000 ML IV ONE (00:15)
[2018-06-04] MEDS ORDERED: HYDROmorphONE/DILAUDID 1 MG/ML INJ IVP ONE (00:57)
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
[2018-06-04] MEDS ORDERED: ACETAMINOPHEN/ASA/CAFFEINE 1 EACH TAB PO PRN (04:55)
[2018-06-04] MEDS: PIPERACILLIN/TAZO 3.375 GM/DEX 50 ML IV SCH ×3 (05:07→17:16)
[2018-06-04] MEDS: HYDROmorphONE/DILAUDID 1 MG/ML INJ IVP PRN ×4 (05:51→19:50)
[2018-06-04 06:02] LABS: PLATELET COUNT 198 10^3/uL (150-400)
--- NOTE | 2018-06-04 09:09 | HOSPPROG ---
Hospitalist Progress Note Assessment/Plan: # sepsis (fever, leukocytosis) - no clear source at this point - her hypotension is approximately baseline - would not place central line currently but follow very closely - appreciate ID consult; continue empiric vanc/zosyn for now - follow BCx (at risk for endocarditis) # anal fistula - followed by Dr Morfin; I have placed a call to him for an assessment today - Seton in place - see Dr. Fontana's note for more information # anemia - currently at baseline - suspect hemoconcentrated on presentation # Marfan's syndrome - c/b thoracic aortic aneurysm and MV pathology # MV repair - had planned outpatient TTE - check here today - will alert cardiology if there are any concerning findings # adrenal insufficiency - cont budesonide; I don't think she needs stress dose steroids at this point # chronic pain - continue outpatient medications, oxycontin, oxycodone and dilaudid IV prn Subjective: +cough with some L sided rib pain; concerned about her high fevers and not having a clear source Objective: Vital Signs Temp Pulse Resp BP Pulse Ox 36.8 C 95 16 85/55 L 99 06/04/18 08:00 06/04/18 08:00 06/04/18 08:00 06/04/18 08:00 06/04/18 08:00 Laboratory Results 06/04/18 05:30 06/04/18 05:30 06/03/18 06/04/18 06/05/18 05:59 05:59 05:59 Intake Total 3650 Balance 3650 PT 13.2 SEC (12.0-15.0) 06/03/18 22:20 INR 1.04 (0.83-1.16) 06/03/18 22:[address] reviewed CXR personally reviewed - Physical Exam Constitutional: other (layig in bed, comfortable) Cardiovascular: regular rate and rhythym, no murmur, rub, or gallop Respiratory: no respiratory distress, no rales or rhonchi, clear to auscultation Gastrointestinal: soft, non-tender abdomen, no palpable masses, No guarding, No rebound ICD10 Worksheet Patient Problems: Problems Problem Status Onset Mitral valve regurgitation Acute H/O spinal fusion Acute Lumbar stenosis Acute Lumbago Acute Pain in thoracic spine Acute
[2018-06-04] MEDS ORDERED: DIAZEPAM 10 MG TAB PO PRN (11:01)
[2018-06-04] MEDS ORDERED: CYCLOBENZAPRINE 10 MG TAB PO PRN (11:01)
[2018-06-04] MEDS ORDERED: Rizatriptan Benzoate [Maxalt Mlt] 10 MG PO PRN (11:01)
[2018-06-04] MEDS ORDERED: oxyCODONE IR 5 MG TAB PO PRN (11:01)
[2018-06-04] MEDS ORDERED: HYDROmorphONE/DILAUDID 2 MG TAB PO PRN (11:15)
--- NOTE | 2018-06-04 11:28 | PDMN ---
Medical Necessity Medical necessity: Pt meets IP criteria per MD & MCG M-160; est los >2 mn for eval/tx of sepsis w/tachycardia, fever, elevated WBC & acute onset of leg/back pain; etiology unclear-possibly r/t chronic anal fistula; requiring further workup/close SDU monitoring, ID consult, IV abx , IVFs & pain management; hx Zoran; per H&P & order 06/03/18
[2018-06-04] MEDS: VANCOMYCIN HCL/NORMAL SALINE 250 ML IV SCH ×2 (11:35→23:46)
[2018-06-04] MEDS: BUDESONIDE 3 MG EC CAP PO SCH ×2 (11:36→14:49)
[2018-06-04] MEDS: oxyCODONE CR 80 MG TAB PO SCH ×2 (11:36→22:22)
--- NOTE | 2018-06-04 13:56 | ASMTCMCOM ---
CM Note CM Note Notes: Pt discussed in rounds and chart reviewed. Pt is a 57 yr old admitted with fever and sepsis. No source found for the high Temperatures per MD. Hx of Marfan's Syndrome, Anal Fistula (Seen by Dr Hardwick this AM). Pt has a partner named Pieter. Case Management available for needs. PLAN: TBD Date Signed: 06/04/2018 01:55 PM Electronically Signed By:Mounika Prasad
[2018-06-04] MEDS: DIAZEPAM 5 MG TAB PO PRN (14:48)
[2018-06-04] MEDS ORDERED: SUMAtriptan 50 MG TAB PO ONE (15:30)
--- NOTE | 2018-06-04 17:15 | GCON ---
[f rep st] CONSULTATION INPATIENT INFECTIOUS DISEASE CONSULTATION REFERRING PHYSICIAN: Bhargav Araiza MD REASON FOR REFERRAL: Fever, back pain. HISTORY OF PRESENT ILLNESS: Patient is a 57-year-old female with a history of Marfan syndrome and ad renal insufficiency who presented to [facility] last evening. She reports that she took a nap in the afternoon, and when she awoke and reached for her phone, she had extreme pain in the middle of her lumbar spine that radiated distally to both legs symmetrically. Th e patient relates that she has had multiple spinal surgeries and has a significant amount of hardware in the lumbar and sacral spine, as well as the cervical spine. The patient attempted to treat the p ain with pain medications at home, but then noted after feeling flushed, that she had a fever of grea ter than 103 degrees Fahrenheit. She had no other focal symptoms. She came into the emergency room where she underwent a chest x-ray and abdominal CT. The abdominal C T did not show any focus for infection. She has a known chronic perianal fistula, which did not appe ar to be inflamed on imaging. Chest x-ray, likewise, was clear. She was admitted and started on van comycin and Zosyn. Currently, she is comfortable enough to be able answer questions, but still notes discomfort in the back and legs. No other new complaint. PAST MEDICAL HISTORY: 1. Marfan syndrome. 2. Adrenal insufficiency. 3. Chronic anal fistula. 4. History of mitral valve rupture. 5. Chronic pain. 6. Spinal degenerative disk disease. PAST SURGICAL HISTORY: 1. Status post cervical fixation. 2. Status post lumbosacral fixation. 3. Status post mitral valve repair. 4. Status post rectal surgery. ANTIBIOTICS: 1. Vancomycin. 2. Zosyn. ALLERGIES: Patient is allergic to Cipro, fentanyl, codeine, prednisone, hydrocortisone, Nisentil, fl u vaccine and a listing for oral antibiotics. FAMILY HISTORY: Positive for Marfan syndrome. SOCIAL HISTORY: Patient is an occasional tobacco user. No known alcohol or drug use. REVIEW OF SYSTEMS: Other than that detailed above in this present illness, comprehensive 10-system r eview is negative. PHYSICAL EXAMINATION: VITAL SIGNS: Temperature maximum is 39 0, temperature current is 36.7, heart rate is 92, respiratory rate is 18, blood pressure is 99/55. GENERAL: The patient is a well-formed, thin middle-aged female in no acute distress. She is not toxic in appearance. She is alert and alejandra ented x3. She is pleasant in demeanor. HEENT: Normocephalic for age, atraumatic. No scleral icter us. No oral lesion or drainage from the nares. Eyes lids and conjunctivae are within normal limits. Pupils are equal and round bilaterally. NECK: Supple. No meningismus. LUNGS: Clear to auscultation bilaterally with good effort. HEART: Regul ar rate and rhythm. No significant peripheral edema. ABDOMEN: Soft, nontender. No masses. SKIN: Warm and dry to the touch. No rash or lesion seen. MUSCULOSKELETAL: No muscle belly tenderness is noted. No joint enlargement, effusion, or arthritis is seen. NEURO: Cranial nerves 2 through 12 s eem to be intact. Peripheral sensation seems intact in extremities. LABORATORY DATA: Patient has a CBC dated 06/04/2018, that shows white blood cell count of 18.3, hemo globin of 10.9, hematocrit of 34.1, and a platelet count of 198. Differential is left-shifted with 8 7% segmented neutrophils. Serum chemistries on 06/04/2018, show sodium of 136, potassium 3.9, chlori de 105, bicarbonate 26, BUN of 8, creatinine of 0.7. Nasal influenza PCR is negative for both A and B. MICROBIOLOGIC DATA: Patient has a nasal sinus swab respiratory panel PCR is negative. Blood culture s dated 06/03/2018, are pending. RADIOLOGIC DATA: Patient has a chest x-ray dated 06/03/2018, shows no lung disease and abdominal CT dated 06/03/2018, which shows no perianal or perirectal abscess. It shows constipation, but no acute diverticulitis or bowel obstruction. It shows no free fluid or localized intraabdominal inflammator y or infectious process. ASSESSMENT: Sudden onset fever with lumbar back pain with radicular pain bilaterally. I am concerne d that this may be a presentation of epidural abscess, especially noting hardware in the lumbar sacra l area. Will obtain an MRI with contrast today and follow up after the radiologist has read the stud y. In the meantime, I think the vancomycin and Zosyn are reasonable empiric antibiotics. We will fo llow her temperature curve, as well as her clinical symptoms. PLAN: 1. Continue both vancomycin and Zosyn. We will check vancomycin trough prior to the fourth dose. 2. Obtain MRI of the lumbar sacral spine with contrast. 3. Follow her clinical improvement. /[id number]/MODL
[2018-06-04] MEDS ORDERED: GADOBUTROL 10 ML VIAL IVP ONE (17:58)
--- NOTE | 2018-06-04 18:22 | ECHO ---
[email or web address] [address] Main: [phone] Echocardiography Examination Transthoracic Name: IFRAH LEDEZMA MR#: [id number] Study Date: 06/04/2018 Study Time: 11:46 AM Date of : 1960 Age: 57 year(s) Height: 182.9 cm (72 in.) Weight: 58.51 kg (129 lb.) BSA: 1.77 m2 Gender: Female Examination: Echo Contrast: Image Quality: Adequate Rhythm: Heart Rate: BP: / Indication: Fever unknown origin, Sepsis Procedure Staff Referring Physician: Type Bar And Segment Assembler: Reading Physician: Amari Frank MD Requesting Provider: Indication: Fever unknown origin, Sepsis Measurements Chambers AV/MV Label Value Normal Value Label Value Normal Value EF lower range (%) 60 % AV PGmax 5 mmHg EF upper range (%) 65 % AV PGmean 3 mmHg IVSd, 2D 0.8 cm (0.6cm - 1.1cm) AV Vmax 1.15 m/s LVDd, 2D 4.1 cm (3.9cm - 5.3cm) ARIANNA (continuity eq. 3.7 cm2 LVDs, 2D 2.8 cm (2.1cm - 4cm) Vmax) LVEF, 2D 62 % (54% - 74%) ARIANNA D (continuity eq. 4.4 cm2 LVOT PGmax 3 mmHg VTI) LVOT PGmean 2 mmHg MV A Vmax 1.19 m/s LVOT Vmax 0.87 m/s (0.7m/s - 1.1m/s) MV E' lateral 0.06 m/s LVOT Vmean 0.59 m/s MV E' mean 0.06 m/s LVOTd 2.5 cm (1.8cm - 2cm) MV E' septal 0.05 m/s LVPWd, 2D 0.8 cm MV E Vmax 1 m/s RVDd, 2D 2 cm (1.9cm - 3.8cm) MV E/A 0.84 LA Area, A2C 15.9 cm2 (0cm2 - 20cm2) MV E/E' lateral 17.4 LA Volume, A2C 45 ml (22ml - 52ml) MV E/E' mean 18.18 LA Volume, A4C 41 ml (22ml - 52ml) MV E/E' septal 20.9 (0.5 - 1.7) LA Volume, BP 45 ml (22ml - 52ml) MV PGmax 8 mmHg LAESV index, BP 25.4 ml/m2 MV PGmean 4 mmHg RA Area 10.2 cm2 MV VTI 48.4 cm Additional Vessels MVA D (continuity eq.) 2 cm2 Patient: IFRAH LEDEZMA Study Date: 06/04/2018 Page 1 of 3 11:46 AM Label Value Normal Value TV/PV AoAsc 3.4 cm Label Value Normal Value AoRoot, MM 3.7 cm (2.2cm - 3.7cm) RA Pressure 5 mmHg RVSP 22 mmHg TR Pmax 17 mmHg TR Vmax 2.04 m/s PV PGmax 1 mmHg PV Vmax, Caliper 0.58 m/s (0.6m/s - 0.9m/s) Conclusions (1) left ventricular systolic ejection fraction was normal (60-65%) - normal wall motion (2) Normal RV size and function (3) Normal atrial dimensions (4) Annuloplasty ring to mitral valve without appreciable regurgitation noted (5) Trileaflet aortic valve without regurgitation noted (6) Trivial TR with RVSP of 22 mm Hg (7) Poor visualization of the pulmonic valve (8) Normal ascending aortic dimensions Findings Left Ventricle: Indeterminate diastolic dysfunction.. Left ventricle is normal in size. Normal global systolic left ventricular function. The ejection fraction, measured by 2D, is 62 %. EF range is estimated at 60 % - 65 %. Left ventricle wall thickness is normal. There are no regional wall motion abnormalities. Cannot determine LAP and Diastolic Dysfunction Grade. No LV hypertrophy. Right Ventricle: Normal size right ventricle. Right ventricular systolic function is normal. Left Atrium: The left atrium is normal in size. Left Atrium Measurements LAESV index, BP is 25.4 ml/m2. Right Atrium Measurements RA Area is 10.2 cm2. Mitral Valve: An annuloplasty ring is noted in the mitral valve position. Mitral Valve Measurements MV PGmean is 4 mmHg. Aortic Valve: No aortic valve regurgitation. There is no aortic stenosis. The aortic valve is trileaflet. Tricuspid Valve: Trivial tricuspid regurgitation. Right Ventricular systolic pressure is measured at 22 mmHg. Pulmonic Valve: Pulmonic leaflets are normal in appearance and function. Aorta: Compared to the previous exam of 09/10/17 there is no significant change.. sinus of valsalva measuring 4.00 cm. The aortic root size in M-mode measures 3.7 cm. The ascending aorta measures 3.4 cm. Ascending aorta is normal in size. Aorta Measurements AoRoot, MM is 3.7 cm. Exam Details Patient: IFRAH LEDEZMA Study Date: 06/04/2018 Page 2 of 3 11:46 AM Procedure Ordered: Echo Procedure Status: Routine study Image Quality: Adequate Facility Location: Cardiac Echo 1 (No Signature Object) Patient: IFRAH LEDEZMA Study Date: 06/04/2018 Page 3 of 3 11:46 AM [id number]
[2018-06-04] MEDS: QUEtiapine FUMARATE 50 MG TAB PO SCH (22:21)
[2018-06-04] MEDS: traZODone 100 MG TAB PO SCH (22:21)
[2018-06-04] MEDS: GABAPENTIN 300 MG CAP PO SCH (22:21)
[2018-06-04] MEDS: metFORMIN HCL 500 MG TAB PO SCH (22:22)
[2018-06-04] MEDS: Suvorexant [Belsomra] 15 MG PO SCH (22:41)
[2018-06-04] MEDS: ESTRADIOL PO SCH (22:41)
[2018-06-04] MEDS: NORETHINDRONE ACET PO SCH (22:41)
[2018-06-05] MEDS: PIPERACILLIN/TAZO 3.375 GM/DEX 50 ML IV SCH ×4 (02:47→17:44)
[2018-06-05 05:57] LABS: PLATELET COUNT 192 10^3/uL (150-400)
--- NOTE | 2018-06-05 06:07 | GCON ---
[f rep st] CONSULTATION This is a 57-year-old woman known to me for previous perirectal abscess and fistula status post seton placement approximately 1 month ago. The patient presented to the hospital with fever of 103.2, 39. 1, after being seen in the office yesterday with just mention of seton without any manipulation or cl osure. The patient had called her family doctor who thought it was flu. He sent her into the hospit al. Blood cultures are pending. The patient had tachycardia and fever thought to be septic. She wa s taken to the ICU. CT scan of the abdomen and pelvis was normal according to the official read. Wi th my read, there is no perirectal inflammation or abscess formation at this time. Seton is visible without signs of perirectal inflammation, free air or rectal irritation. PAST MEDICAL HISTORY: Significant for Marfan syndrome, chronic pain, perirectal abscess, microscopic colitis, adrenal insufficiency, insomnia, narcolepsy, asthma, previous myocardial infarction, hypoth yroidism. ALLERGIES: She has multiple allergies including fluoroquinolones, codeine, fentanyl, hydrocortisone. MEDICATIONS: Multiple medications including oxycodone, OxyContin, Dilaudid, Robaxin, cyclobenzaprine , Neurontin, aspirin, trazodone, Belsomra, Seroquel, Valium, metformin, Synthroid, , budeso nide, Lidoderm, and Lopreeza. FAMILY HISTORY: Significant for Parkinson disease in both parents. PAST SURGICAL HISTORY: Multiple spinal interventions, bilateral tubal ligation, hemorrhoidectomy, fi stulotomy with advancement flap, ORIF left radial fracture. SOCIAL HISTORY: Smoking history: She is a nonsmoker. Denies alcohol or drug use. 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 REVIEW OF SYSTEMS: Significant for chronic back pain of Marfan, and her rectal fistula. PHYSICAL EXAM: VITAL SIGNS: The patient currently has stable vital signs. She is actually mildly h ypotensive with a blood pressure of 96 systolic, heart rate in the 80s. Sats 98% on room air. HEENT : Sclerae anicteric. Oropharynx is moist. LUNGS: Clear. HEART: Regular heart tones. ABDOMEN: Soft, nontender, nondistended. MUSCULOSKELETAL: Back is straight. She wears a brace when out of be d. Currently, she is not wearing her brace. : Seton is in good position. No perirectal abscess formation or purulence. LABORATORY: The CT scan [place] [address] with a left shift. Othe r labs reviewed, within normal limits. ASSESSMENT: The patient has a septic picture or systemic inflammatory response of unknown origin. W ill continue workup. Doubt it is rectal origin, but still concerning given her Marfan and immunocomp romised. Would continue her here in the hospital. Continue Zosyn. Will follow her peripherally. /[id number]/MODL
[2018-06-05] MEDS: LEVOTHYROXINE 88 MCG TAB PO SCH (06:34)
[2018-06-05] MEDS: oxyCODONE CR 80 MG TAB PO SCH ×2 (06:34→17:44)
[2018-06-05] MEDS: ASPIRIN 325 MG TAB PO SCH (07:42)
[2018-06-05] MEDS: BUDESONIDE 3 MG EC CAP PO SCH ×2 (07:42→13:13)
[2018-06-05] MEDS: metFORMIN HCL 500 MG TAB PO SCH ×2 (07:42→17:44)
[2018-06-05] MEDS: HYDROmorphONE/DILAUDID 1 MG/ML INJ IVP PRN (07:53)
--- NOTE | 2018-06-05 08:55 | HOSPPROG ---
Hospitalist Progress Note Assessment/Plan: #Sepsis (fever, leukocytosis)-unclear, but concern with back pain/fever -L3-4 fluid collection on MRI, but not enhancing, Consulted Neurosurgery to evaluate -negative CT abd/pelvis, UA, CXR, influenza negative. No vegetations on JAYASHREE -Vanc/Zosyn, appreciate ID consult #Anal fistula - followed by Dr Morfin and evaluated. CT reassuring #Normocytic anemia - currently at baseline - suspect hemoconcentrated on presentation #Lactic acidosis: resolved with IVFs # Marfan's syndrome - c/b thoracic aortic aneurysm and MV pathology # MV repair: stable on echo # Adrenal insufficiency - cont budesonide; I don't think she needs stress dose steroids at this point # Chronic pain with chronic opioid dependence: oxycontin, oxycodone and dilaudid IV prn #DVT ppx: SCDs #Disp: inpatient admission for IV abx Subjective: Pain in BL legs today with walking. Mild cough Objective: Vital Signs Temp Pulse Resp BP Pulse Ox 37.4 C 84 14 99/63 L 97 06/05/18 07:23 06/05/18 07:23 06/05/18 07:23 06/05/18 07:23 06/05/18 07:23 Laboratory Results 06/05/18 04:20 06/05/18 04:20 06/04/18 06/05/18 06/06/18 05:59 05:59 05:59 Intake Total 3650 Balance 3650 PT 13.2 SEC (12.0-15.0) 06/03/18 22:20 INR 1.04 (0.83-1.16) 06/03/18 22:20 - Time Spent With Patient Time Spent with Patient: greater than 35 minutes Time Spent with Patient: Greater than 35 minutes spent on this patients care, greater than 50% of time spent counseling, educating, and coordinating care regarding the above mentioned plan. - Physical Exam Constitutional: no apparent distress Eyes: PERRL Ears, Nose, Mouth, Throat: moist mucous membranes Cardiovascular: regular rate and rhythym Respiratory: no respiratory distress, no rales or rhonchi Gastrointestinal: normoactive bowel sounds Genitourinary: no bladder fullness Skin: other (2nd right toe with small skin erosion, no cellulitis) Musculoskeletal: full muscle strength Neurologic: AAOx3, CN II-XII Intact Psychiatric: interacting appropriately ICD10 Worksheet Patient Problems: Problems Problem Status Onset Back pain Acute Fever Acute H/O spinal fusion Acute Lumbago Acute Lumbar stenosis Acute Mitral valve regurgitation Acute Pain in thoracic spine Acute
--- NOTE | 2018-06-05 11:21 | SOAPPROG ---
SOAP Progress Note Assessment/Plan: Assessment:no new overnight events. no rectal pain. drainage unchanged with seton in place. back pain with radiculopathy improved. afebrile. up in chair, comfortable. abd soft. anus not examined. FUO - on zosyn and Vanco. NS to assess - no definite abscess on MRI. no further surgical reccs at this time. Plan: 06/05/18 11:19 Objective: Vital Signs Temp Pulse Resp BP Pulse Ox 37.4 C 84 14 99/63 L 97 06/05/18 07:23 06/05/18 07:23 06/05/18 07:23 06/05/18 07:23 06/05/18 07:23 Laboratory Results 06/05/18 04:20 06/05/18 04:20 06/04/18 06/05/18 06/06/18 05:59 05:59 05:59 Intake Total 3650 Balance 3650 PT 13.2 SEC (12.0-15.0) 06/03/18 22:20 INR 1.04 (0.83-1.16) 06/03/18 22:20 ICD10 Worksheet Patient Problems: Problems Problem Status Onset Back pain Acute Fever Acute H/O spinal fusion Acute Lumbago Acute Lumbar stenosis Acute Mitral valve regurgitation Acute Pain in thoracic spine Acute
[2018-06-05] MEDS: VANCOMYCIN HCL/NORMAL SALINE 250 ML IV SCH (11:34)
[2018-06-05] MEDS ORDERED: NS 500 ML IV ONE (15:53)
--- NOTE | 2018-06-05 16:10 | PCMIDPN ---
Assessment/Plan: Assessment: Presentation with fever back and bilateral radicular pain. Blood cultures negative so far. Patient was placed on vancomycin and Zosyn empiric therapy. MRI of the lumbar spine revealed a fluid collection was nonenhancing around L3/ L4. Unclear significance of this fluid collection. Will discuss with Neurosurgery about possible aspiration for evaluation. Meantime will continue antibiotic regimen. Plan: 1. Continue both IV vancomycin and IV Zosyn. 2. Follow up with Neurosurgery about possible IR aspiration of fluid collection around lumbar hardware. 06/05/18 16:08 Subjective: Patient is lying in her hospital bed. Notes continued leg pain early this morning. No fevers or chills. No rash. No itching. Objective: Vancomycin # 2 Zosyn # 2 Vital Signs Temp Pulse Resp BP Pulse Ox 36.8 C 72 12 78/49 L 99 06/05/18 15:44 06/05/18 15:44 06/05/18 15:44 06/05/18 15:44 06/05/18 15:44 Laboratory Results 06/05/18 04:20 06/05/18 04:20 06/04/18 06/05/18 06/06/18 05:59 05:59 05:59 Intake Total 3650 Balance 3650 - Physical Exam General Appearance: WD/WN, alert, no apparent distress, thin, non-toxic Respiratory: lungs clear, normal breath sounds, No respiratory distress Cardiac/Chest: regular rate, rhythm, No tachycardia Skin: normal color, warm/dry, No rash Neuro/Psych: alert, normal mood/affect, oriented x 3 ICD10 Worksheet Patient Problems: Problems Problem Status Onset Back pain Acute Fever Acute H/O spinal fusion Acute Lumbago Acute Lumbar stenosis Acute Mitral valve regurgitation Acute Pain in thoracic spine Acute
[2018-06-05] MEDS: Suvorexant [Belsomra] 15 MG PO SCH (21:20)
[2018-06-05] MEDS: GABAPENTIN 300 MG CAP PO SCH (21:21)
[2018-06-05] MEDS: ESTRADIOL PO SCH (21:24)
[2018-06-05] MEDS: NORETHINDRONE ACET PO SCH (21:24)
[2018-06-05] MEDS ORDERED: SUMAtriptan 50 MG TAB PO ONE (21:58)
[2018-06-06] MEDS: DIAZEPAM 5 MG TAB PO PRN ×2 (00:08→23:42)
[2018-06-06] MEDS: traZODone 100 MG TAB PO SCH ×2 (00:09→23:42)
[2018-06-06] MEDS: QUEtiapine FUMARATE 50 MG TAB PO SCH ×2 (00:09→23:42)
[2018-06-06] MEDS: VANCOMYCIN HCL/NORMAL SALINE 250 ML IV SCH ×2 (00:41→13:14)
[2018-06-06] MEDS: PIPERACILLIN/TAZO 3.375 GM/DEX 50 ML IV SCH ×4 (02:44→20:07)
--- NOTE | 2018-06-06 04:04 | GCON ---
[f rep st] CONSULTATION NEUROSURGICAL CONSULTATION CHIEF COMPLAINT: Low back pain, bilateral leg pain, and fevers. HISTORY OF PRESENT ILLNESS: The patient is a pleasant 57-year-old female with multiple medical issue s, including Marfan syndrome, adrenal insufficiency, rectal fistula, chronic pain, and cervical as we ll as thoracolumbar fusions. She presented to the emergency department on 06/03/2018 with an acute exacerbation of low back pain t hat started when she woke up from a nap. This also included bilateral leg pain circumferentially cora und the anterior and posterior thighs and down her posterior and lateral calves and into her feet. T here was no specific nerve distribution and the patient described the pain as her "entire legs." Thi s was not associated with any new bowel or bladder changes. The patient states that she has had multiple surgeries, including a cervical anterior-posterior fusio n with the anterior portion done by Dr. Esparza and also she has undergone approximately T8 to S1 fusi on over multiple surgeries, also with a thoracolumbar fusion performed by Dr. Esparza. She is not rep orting any tingling or weakness in her lower extremities at this time. She did have an episode of ti ngling in her left thoracic rib area; however, this is not currently present. She is not experiencin g any focal back pain at this time. She states her leg and back pain have improved since being given Dilaudid. ALLERGIES: Cipro, fentanyl, codeine, prednisone, hydrocortisone. PAST MEDICAL HISTORY: Marfan syndrome, adrenal insufficiency, chronic pain, colitis. PAST SURGICAL HISTORY: 1. Anterior posterior cervical fusion. 2. T8 to S1 fusion. 3. Rectal fistula status post [address] Morfin. 4. Mitral valve repair. SOCIAL HISTORY: The patient lives with a partner. She does not drink alcohol or use drugs. FAMILY HISTORY: Noncontributory. REVIEW OF SYSTEMS: Negative other than mentioned in the HPI. PHYSICAL EXAM: Pleasant, tired-appearing 57-year-old female in no apparent distress. HEAD, EYES, EA RS, NOSE, AND THROAT: Within normal limits. EXTREMITIES: Within normal limits. NEUROLOGIC: Patie nt is awake, alert, and oriented x4. Cranial nerves 2 through 12 are intact to gross examination. S peech is fluent. Tongue is midline. Spinal accessory muscles are intact. She has equal and symmetr ic strength of bilateral upper and lower extremities in all muscle groups and normal sensation in all dermatomal distributions of the bilateral upper and lower extremities. Reflexes: She has 1/4 bilat eral biceps and brachia radialis, absent bilateral patellar tendon reflexes, and no Boyle's bilater ally. The patient is able to stand up and down from the chair with ease. She has no tenderness to palpatio n of the cervical, thoracic, or lumbar spine. She has a well-healed posterior incision. MRI lumbar spine with and without contrast from 06/04/2018 was reviewed by myself and Dr. Michelle. Th is demonstrates extensive thoracolumbar fusion. There is a posterior fluid collection superficially at the L3-4 level. This is nonenhancing, noncompressive, and nowhere near the thecal sac. The theca l sac appears well decompressed with no new fluid collections, fracture or stenosis, or enhancement. Abdominal CT: Per the report, no perianal/perirectal abscess. No acute diverticulitis or bowel obst ruction. No free fluid or localized intraabdominal inflammatory/infectious process. There is consti pation noted. LAB RESULTS: White blood cell count 11.1, hemoglobin 10, hematocrit 31.1, platelets 192. Sodium 136 , potassium 3.8, chloride 107, carbon dioxide 26, BUN 7, creatinine 0.7. Urinalysis is negative for leukocyte esterase and with normal white blood cells. Blood cultures are pending. IMPRESSION: This is a 57-year-old female with acute onset of low back pain and bilateral lower extre mity pain recently without any inciting event. The patient has also presented febrile and tachycardi c. At this time, there is no source for infection and it is felt unlikely to be stemming from her hemant mbar spine despite the fact that there is an L3-4 posterior fluid collection, since this is a superfi cial fluid collection and not enhancing and appears consistent with a seroma, which is very typical a fter this type of surgery; however, there is a possibility that this could be infected; however, we f eel this is unlikely. The patient does have an extensive thoracolumbar fusion and given her acute, but now resolved, low ba ck and bilateral leg pain, we would recommend imaging of the thoracic spine with a thoracic MRI with and without contrast. All of the above issues were discussed with the patient as well as with Dr. Thakkar and Dr. Miguel Angel lópez. We will continue to follow along with her hospitalization. I will order her thoracic MRI with a nd without. /[id number]/MODL
[2018-06-06] MEDS: LEVOTHYROXINE 88 MCG TAB PO SCH (06:12)
[2018-06-06] MEDS: oxyCODONE CR 80 MG TAB PO SCH ×2 (06:12→18:54)
[2018-06-06] MEDS: metFORMIN HCL 500 MG TAB PO SCH ×2 (09:47→20:27)
[2018-06-06] MEDS: ASPIRIN 325 MG TAB PO SCH (09:47)
[2018-06-06] MEDS: BUDESONIDE 3 MG EC CAP PO SCH ×2 (09:47→15:14)
--- NOTE | 2018-06-06 10:03 | SOAPPROG ---
SOAP Progress Note Assessment/Plan: Assessment: 57 yo female with T8-S1 fusion admitted with fevers and back pain Today does not have LBP but has "tightness" in her Thoracic spine Blood cx NGTD Afebrile today. WBC normal Plan: Thoracic MRI pending today to look for possible cause of pain. Activity as tolerated. ID may want superficial lumbar fluid collection sampled. 06/06/18 10:00 06/06/18 10:01 06/06/18 10:03 06/06/18 10:04 Subjective: Awake, lying in bed, gets out of bed easily and stands on heels and toes without difficulty She slept well. she has some "tightness" in her thoracic spine. Denies leg pain weakness or tingling. Not currently having LBP. Objective: Vital Signs Temp Pulse Resp BP Pulse Ox 36.9 C 88 16 121/80 H 94 06/05/18 23:00 06/05/18 23:00 06/05/18 23:00 06/05/18 23:00 06/05/18 23:00 Laboratory Results 06/06/18 04:10 06/05/18 04:20 PT 13.2 SEC (12.0-15.0) 06/03/18 22:20 INR 1.04 (0.83-1.16) 06/03/18 22:20 Neuro: SUE, sens +LT able to heel and toe stand easily mobilizes easily. ICD10 Worksheet Patient Problems: Problems Problem Status Onset Back pain Acute Fever Acute H/O spinal fusion Acute Lumbago Acute Lumbar stenosis Acute Mitral valve regurgitation Acute Pain in thoracic spine Acute
[2018-06-06] MEDS ORDERED: GADOBUTROL 10 ML VIAL IVP ONE ×2 (11:11→11:54)
--- NOTE | 2018-06-06 14:57 | HOSPPROG ---
Hospitalist Progress Note Assessment/Plan: #Sepsis: resolved -L3-4 fluid collection on MRI, but not enhancing. Will not aspirate. -negative CT abd/pelvis, UA, CXR, influenza negative. No vegetations on JAYASHREE. Blood cultures NGT -Zosyn, stop Vancomycin. 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 CT reassuring #Normocytic anemia - currently at baseline - suspect hemoconcentrated on presentation #Lactic acidosis: resolved with IVFs # Marfan's syndrome - c/b thoracic aortic aneurysm and MV pathology # MV repair: stable on echo # Adrenal insufficiency - cont budesonide. Stress-dosing not needed # Chronic pain with chronic opioid dependence: oxycontin, oxycodone and dilaudid IV prn #DVT ppx: SCDs #Disp: inpatient admission for IV abx Subjective: no back pain. Objective: Vital Signs Temp Pulse Resp BP Pulse Ox 36.8 C 76 16 106/75 94 06/06/18 08:00 06/06/18 08:00 06/06/18 08:00 06/06/18 08:00 06/06/18 08:00 Laboratory Results 06/06/18 04:10 06/05/18 04:20 PT 13.2 SEC (12.0-15.0) 06/03/18 22:20 INR 1.04 (0.83-1.16) 06/03/18 22:20 - Time Spent With Patient Time Spent with Patient: greater than 35 minutes Time Spent with Patient: Greater than 35 minutes spent on this patients care, greater than 50% of time spent counseling, educating, and coordinating care regarding the above mentioned plan. - Physical Exam Constitutional: no apparent distress Eyes: PERRL Ears, Nose, Mouth, Throat: moist mucous membranes Cardiovascular: regular rate and rhythym Respiratory: no respiratory distress Gastrointestinal: normoactive bowel sounds Genitourinary: no bladder fullness Skin: warm Musculoskeletal: other (no TTP over spine) Neurologic: AAOx3, CN II-XII Intact Psychiatric: interacting appropriately ICD10 Worksheet Patient Problems: Problems Problem Status Onset Back pain Acute Fever Acute H/O spinal fusion Acute Lumbago Acute Lumbar stenosis Acute Mitral valve regurgitation Acute Pain in thoracic spine Acute
--- NOTE | 2018-06-06 15:25 | PCMIDPN ---
Assessment/Plan: Assessment: Presentation with fever back and bilateral radicular pain. Blood cultures negative so far. Patient was placed on vancomycin and Zosyn empiric therapy. MRI of the lumbar spine revealed a fluid collection was nonenhancing around L3/ L4. After discussion with Neurosurgery decision not to access the nonenhancing fluid collection over around the lumbar spine. MRI of the thoracic spine done today. Awaiting read. Patient without any further fever or elevated white count. Will discontinue IV vancomycin but maintain IV Zosyn through tomorrow. Re-evaluate at that time. If everything is still unchanged will discontinue Zosyn and prepare for discharge. Plan: 1. Discontinue IV vancomycin. 2. Continue IV Zosyn. 3. Follow up with Neurosurgery about possible IR aspiration of fluid collection around lumbar hardware. Subjective: Patient is sitting up in a chair. She has no new complaints. Back pain is at baseline. Tolerating both vancomycin and Zosyn without issue. Objective: Vancomycin # 3 Zosyn # 3 Vital Signs Temp Pulse Resp BP Pulse Ox 36.8 C 76 16 106/75 94 06/06/18 08:00 06/06/18 08:00 06/06/18 08:00 06/06/18 08:00 06/06/18 08:00 Laboratory Results 06/06/18 04:10 06/05/18 04:20 - Physical Exam General Appearance: WD/WN, alert, no apparent distress, non-toxic Cardiac/Chest: regular rate, rhythm, tachycardia Skin: normal color, warm/dry, No rash Neuro/Psych: alert, normal mood/affect, oriented x 3 ICD10 Worksheet Patient Problems: Problems Problem Status Onset Back pain Acute Fever Acute H/O spinal fusion Acute Lumbago Acute Lumbar stenosis Acute Mitral valve regurgitation Acute Pain in thoracic spine Acute
[2018-06-06] MEDS: guaiFENesin 600 MG TAB.ER PO SCH ×2 (15:37→20:52)
[2018-06-06] MEDS: GABAPENTIN 300 MG CAP PO SCH (20:52)
[2018-06-06] MEDS: ESTRADIOL PO SCH (20:53)
[2018-06-06] MEDS: NORETHINDRONE ACET PO SCH (20:53)
[2018-06-06] MEDS: Suvorexant [Belsomra] 15 MG PO SCH (20:53)
[2018-06-07] MEDS: PIPERACILLIN/TAZO 3.375 GM/DEX 50 ML IV SCH ×4 (01:03→20:07)
[2018-06-07] MEDS: LEVOTHYROXINE 88 MCG TAB PO SCH (05:26)
--- NOTE | 2018-06-07 07:32 | SOAPPROG ---
SOAP Progress Note Assessment/Plan: Assessment: 57 yo F hx of previous thoracolumbar fusion admitted with fevers and back pain Plan: neuro: stable and doing well overall fevers resolved, off abx per ID MRI Thoracic spine w/o concern for discitis or osteo, MRI lumbar with small L3/ 4 non-enhancing seroma which is not likely infectious source ok to discharge with cleared by IM/ID, follow up with Dr Esparza in 2- 4 weeks, patient can call [phone] to schedule appointment. please call with neuro changes discussed with Dr Esparza 06/07/18 07:29 Subjective: minimal back pain today, no leg pain, no weakness. Objective: Vital Signs Temp Pulse Resp BP Pulse Ox 36.9 C 80 16 110/69 100 06/06/18 23:43 06/06/18 23:43 06/06/18 23:43 06/06/18 23:43 06/06/18 23:43 Laboratory Results 06/06/18 04:10 06/05/18 04:20 06/06/18 06/07/18 06/08/18 05:59 05:59 05:59 Intake Total 350 Balance 350 PT 13.2 SEC (12.0-15.0) 06/03/18 22:20 INR 1.04 (0.83-1.16) 06/03/18 22:20 AAOx4, +FC PERRL, EOMI, no facial droop 5/5 + light touch ICD10 Worksheet Patient Problems: Problems Problem Status Onset Back pain Acute Fever Acute H/O spinal fusion Acute Lumbago Acute Lumbar stenosis Acute Mitral valve regurgitation Acute Pain in thoracic spine Acute
[2018-06-07] MEDS: BUDESONIDE 3 MG EC CAP PO SCH ×2 (09:23→14:48)
[2018-06-07] MEDS: oxyCODONE CR 80 MG TAB PO SCH ×2 (09:24→20:07)
[2018-06-07] MEDS: ASPIRIN 325 MG TAB PO SCH (09:24)
[2018-06-07] MEDS: metFORMIN HCL 500 MG TAB PO SCH ×2 (09:24→17:54)
[2018-06-07] MEDS: guaiFENesin 600 MG TAB.ER PO SCH ×2 (09:24→21:36)
[2018-06-07] MEDS: diphenhydrAMINE 25 MG CAP PO PRN ×2 (15:53→21:36)
--- NOTE | 2018-06-07 16:23 | PCMIDPN ---
Assessment/Plan: Assessment/Plan: * Fever/leukocytosis: No clearly defined etiology but fever has resolved and white blood cell count has normalized with antibiotic therapy. Based on this finding, will complete 5 days of Zosyn in total (end date tomorrow) with plans to repeat CBC as outpatient on thereafter as well as on following Thursday to ensure no recurrent leukocytosis as patient is planning to travel to [facility] on Thursday. Clinically without evidence of mile rectal abscess as etiology and lumbar fluid collection felt to be most compatible with postoperative seroma. Time spent, greater than 35 min, which greater than half was spent in education/ counseling/coordination of care related to fever and leukocytosis. Care was coordinated with patient, nursing staff, and Dr. Montoya. 06/07/18 16:20 06/07/18 16:23 Subjective: Patient feels fatigued. Also notes small area of bleeding from prior vascular cannulation site in right groin. Objective: Vital Signs Temp Pulse Resp BP Pulse Ox 36.8 C 85 16 117/83 H 98 06/07/18 15:27 06/07/18 15:27 06/07/18 15:27 06/07/18 15:27 06/07/18 15:27 Laboratory Results 06/06/18 04:10 06/05/18 04:20 06/06/18 06/07/18 06/08/18 05:59 05:59 05:59 Intake Total 350 Balance 350 Zosyn # 4 Blood cultures x2 no growth T-max 37.[address] abdomen pelvis without evidence of abscess or perirectal abscess Echocardiogram without overt evidence of endocarditis MRI of lumbar and thoracic spine reviewed - Physical Exam General Appearance: alert, no apparent distress EENT: No scleral icterus, No thrush Respiratory: lungs clear, No respiratory distress Cardiac/Chest: regular rate, rhythm, No systolic murmur Extremities: No inflammation Abdomen: non-tender, No distended Rectal: perirectal area (Seton in place without surrounding erythema or induration) Back: No other (Well-healed surgical incision without erythema; nontender to palpation) Skin: other (Right groin with small ecchymotic area with scant bleeding without palpable underlying fluid collection) ICD10 Worksheet Patient Problems: Problems Problem Status Onset Back pain Acute Fever Acute H/O spinal fusion Acute Lumbago Acute Lumbar stenosis Acute Mitral valve regurgitation Acute Pain in thoracic spine Acute
[2018-06-07] MEDS: DIAZEPAM 5 MG TAB PO PRN (16:36)
--- NOTE | 2018-06-07 16:42 | HOSPPROG ---
Hospitalist Progress Note Assessment/Plan: #Sepsis: resolved -unclear source, but fever, leukocytosis resolved with abx. Complete 5 days Zosyn tomorrow and outpatient labs with ID -L3-4 fluid collection on MRI, but not enhancing. Will not aspirate. -negative CT abd/pelvis, UA, CXR, influenza negative. No vegetations on JAYASHREE. Blood cultures NGT #Anal fistula - followed by Dr Morfin and evaluated. CT reassuring #Normocytic anemia - currently at baseline - suspect hemoconcentrated on presentation. Requesting IV iron; normal studies in Mar, will repeat but do not think necessary given primary issue in hospital #Lactic acidosis: resolved with IVFs # Marfan's syndrome - c/b thoracic aortic aneurysm and MV pathology # MV repair: stable on echo # Adrenal insufficiency - cont budesonide. Stress-dosing not needed # Chronic pain with chronic opioid dependence: oxycontin, oxycodone and dilaudid IV prn #DVT ppx: SCDs #Disp: DC tomorrow after abx completed. Case d/w Dr. Coyne Subjective: "blood blister" at groin site from prior procedure Objective: Vital Signs Temp Pulse Resp BP Pulse Ox 36.8 C 85 16 117/83 H 98 06/07/18 15:27 06/07/18 15:27 06/07/18 15:27 06/07/18 15:27 06/07/18 15:27 Laboratory Results 06/06/18 04:10 06/05/18 04:20 06/06/18 06/07/18 06/08/18 05:59 05:59 05:59 Intake Total 350 Balance 350 PT 13.2 SEC (12.0-15.0) 06/03/18 22:20 INR 1.04 (0.83-1.16) 06/03/18 22:20 - Time Spent With Patient Time Spent with Patient: greater than 35 minutes Time Spent with Patient: Greater than 35 minutes spent on this patients care, greater than 50% of time spent counseling, educating, and coordinating care regarding the above mentioned plan. - Physical Exam Constitutional: no apparent distress Eyes: PERRL Ears, Nose, Mouth, Throat: moist mucous membranes Cardiovascular: regular rate and rhythym Respiratory: no respiratory distress Gastrointestinal: normoactive bowel sounds Genitourinary: no bladder fullness Skin: warm, other (small blood blister right groin. No surrounding redness or swelling) Musculoskeletal: full muscle strength Neurologic: AAOx3, CN II-XII Intact Psychiatric: interacting appropriately ICD10 Worksheet Patient Problems: Problems Problem Status Onset Back pain Acute Fever Acute H/O spinal fusion Acute Lumbago Acute Lumbar stenosis Acute Mitral valve regurgitation Acute Pain in thoracic spine Acute
[2018-06-07] MEDS: NORETHINDRONE ACET PO SCH (18:42)
[2018-06-07] MEDS: ESTRADIOL PO SCH (18:42)
[2018-06-07] MEDS: Suvorexant [Belsomra] 15 MG PO SCH (18:43)
[2018-06-07] MEDS: GABAPENTIN 300 MG CAP PO SCH (21:36)
[2018-06-08] MEDS: DIAZEPAM 5 MG TAB PO PRN (00:01)
[2018-06-08] MEDS: traZODone 100 MG TAB PO SCH (00:01)
[2018-06-08] MEDS: QUEtiapine FUMARATE 50 MG TAB PO SCH (00:01)
[2018-06-08] MEDS: PIPERACILLIN/TAZO 3.375 GM/DEX 50 ML IV SCH ×3 (01:44→14:12)
[2018-06-08] MEDS: LEVOTHYROXINE 88 MCG TAB PO SCH (05:39)
[2018-06-08] MEDS: metFORMIN HCL 500 MG TAB PO SCH (08:00)
[2018-06-08] MEDS: guaiFENesin 600 MG TAB.ER PO SCH (08:00)
[2018-06-08] MEDS: ASPIRIN 325 MG TAB PO SCH (08:00)
[2018-06-08] MEDS: BUDESONIDE 3 MG EC CAP PO SCH ×2 (08:00→14:24)
[2018-06-08] MEDS: oxyCODONE CR 80 MG TAB PO SCH (08:00)
--- NOTE | 2018-06-08 08:09 | NEUSURGPN ---
Assessment/Plan: Assessment: 57 yo F with a hx of previous thoracolumbar fusion admitted with fevers and back pain. Pt states that she is doing better today. Plan: -neuro: stable and doing better overall -fevers resolved, off abx per ID -MRI Thoracic spine w/o concern for discitis or osteo, MRI lumbar with small L3/ 4 non-enhancing seroma which is not likely infectious source -plan from ID is to dc pt today and follow up early next week for repeat labs to follow WBC/ESR/CRP -ok to discharge with cleared by IM/ID, follow up with Dr Esparza in 2- 4 weeks, patient can call [phone] to schedule appointment. -please call with any neuro changes -discussed with Dr Esparza -pt understands and agrees Subjective: Awake and alert. NAD. Eating/drinking and voiding. No f/c/n/v/d. No platt/neck/ chest/abd or gu complaints. Objective: AAO x 3, PERRLA/EOMI no droop CN 2-12 grossly intact CDI-no s/s of infections-healed well 5/5 BUE/BLE = +cms/nv intact x 4 Neuro Check Frequency: per routine Urinary Catheter in Place: No - Physician Discussed Patient with : Isaias Patient Seen by : Isaias Neurosurgery Physical Exam - Vitals, I&O, Labs I and O 06/07/18 06/08/18 06/09/18 05:59 05:59 05:59 Intake Total 350 Balance 350 Intake: IV Intake (ml) 350 Other: Intake Quantity Yes Yes Sufficient Number of Stools Toilet 1 Vital Signs Temp Pulse Resp BP Pulse Ox 36.9 C 78 16 113/81 H 98 06/07/18 23:07 06/07/18 23:07 06/07/18 23:07 06/07/18 23:07 06/07/18 23:07 Laboratory Results 06/06/18 04:10 06/05/18 04:20 ICD10 Worksheet Patient Problems: Problems Problem Status Onset Back pain Acute Fever Acute H/O spinal fusion Acute Lumbago Acute Lumbar stenosis Acute Mitral valve regurgitation Acute Pain in thoracic spine Acute
[2018-06-08 08:49] VITALS: BP 106/58
[2018-06-08] MEDS: diphenhydrAMINE 25 MG CAP PO PRN (09:00)
[2018-06-08] MEDS ORDERED: SODIUM FERRIC GLUCONAT/SUCROSE 125 MG in NS 100 ML IV ONE (11:59)
--- NOTE | 2018-06-08 15:28 | GDS ---
[f rep st] DISCHARGE SUMMARY DISCHARGE DIAGNOSES: 1. Sepsis. 2. Anal fistula. 3. Normocytic anemia. 4. Lactic acidosis. 5. Marfan syndrome. 6. Mitral valve repair. 7. Adrenal insufficiency. 8. Chronic pain with chronic opioid dependency. CONSULTATIONS: 1. Surgery. 2. Neurosurgery. 3. Infectious Disease. STUDIES AND PROCEDURES: 1. CT of the abdomen. 2. Echocardiogram. 3. Lumbar spine MRI. 4. Thoracic spine MRI. PHYSICAL EXAM: GENERAL: The patient is alert. VITAL SIGNS: Afebrile at 36.9, pulse 72, respirator y rate 16, blood pressure is 106/58. She is saturating 94% on room air. I have seen and evaluated t he patient on the day of discharge. HOSPITAL COURSE: Patient is a 57-year-old female who presented to the emergency room with complaints of fever and pain. She was evaluated and diagnosed with: 1. Sepsis. This has resolved. The source has been unclear. Her fever has resolved and her leukocy tosis has resolved with antibiotic therapy. She has completed a course of Zosyn and will follow up i n the outpatient setting. 2. L3-4 fluid collection. This was noted on MRI. No aspirate was performed. Neurosurgery was cons ulted, but felt no intervention was warranted at this time. 3. Anal fistula. This is followed by Dr. Morfin and the patient was consulted on during this hospi talization. 4. Normocytic anemia. Patient's anemia is at baseline. Iron studies during this hospitalization we re slightly decreased. She did receive 1 dose of IV iron prior to disposition. 5. Lactic acidosis. This has resolved. 6. History of Marfan syndrome. No intervention warranted. 7. Mitral valve repair. The patient is stable on echo. 8. History of adrenal insufficiency. We have continued her previously prescribed home medications. Steroid stress dosing was not needed. 9. Chronic pain with chronic opioid dependency. Her home medications have been continued. DISPOSITION: The patient will be discharged home independently. PENDING STUDIES: There are no pending studies. FOLLOWUP: Will be with all of her primary providers in the outpatient setting, as well as Dr. Ascencion Arias. DISCHARGE MEDICATIONS: Please refer to EMR form. I have not provided any prescriptions at the time of disposition, nor have I adjusted any of her home medications to the best of my knowledge. I spent greater than 35 minutes in the care, coordination, and management of this patient's discharge . /[id number]/MODL
== END 2018-06-08 14:57 | disposition home or self-care (01) | DRG 872 ==
LOC: OBSVTOIN 23:54 → F2N 06-04 01:18 → F3E 06-04 12:53
PROVIDERS: ADMIT Student in an Organized Health Care Education/Training Program; ATTEND Student in an Organized Health Care Education/Training Program
DX: A41.9 Sepsis, unspecified organism (principal); K60.4 Rectal fistula; E87.2 Acidosis; Q87.40 Marfan syndrome, unspecified; E27.40 Unspecified adrenocortical insufficiency; M54.9 Dorsalgia, unspecified; G89.29 Other chronic pain; F11.20 Opioid dependence, uncomplicated; F17.210 Nicotine dependence, cigarettes, uncomplicated
CPT/HCPCS: 96365; A9585; J1170; J2405; J2543; J2916; J3370; Q9967